=== PATIENT | female | born 1935 | race Caucasian/White ===

== ENCOUNTER → 2018-07-11 12:31 | Outpatient (CLI) | payer MEDICARE, OTHER, SELFPAY ==
[2018-07-11 12:54] LABS: Add Manual Diff / Slide Review NO; Basophils Absolute Auto 0 /uL (0-100); Basophils Percent Auto 0.4 % (0-2); Eosinophils Absolute Auto 100 /uL (0-450); Hematocrit 40.1 % (36-46); Hemoglobin 13.3 g/dL (12.0-16.0); Lymphocytes Absolute Auto 1400 /uL (1100-4500); Lymphocytes Percent Auto 22.3 % (25-40); Mean Corpuscular HGB Conc 33.1 % (30-36); Mean Corpuscular Hemoglobin 27.5 PG (26-34); Mean Corpuscular Volume 83.1 fL (80-100); Monocytes Absolute Auto 400 /uL (0-900); Monocytes Percent Auto 5.6 % (3-14); Neutrophils Absolute Auto 4500 /uL (1500-7000); Neutrophils Percent Auto 70.7 % (50-75); Platelet Count 251 X10^3/uL (150-400); Red Blood Cell Count 4.83 X10^6/uL (4.0-5.2); Red Cell Distribution Width 13.9 % (11.6-14.8); White Blood Cell Count 6.3 X10^3/uL (4.5-11.0)
[2018-07-11 13:05] LABS: Alanine Aminotransferase 26 IU/L (9-52); Albumin 4.4 g/dL (3.5-5.0); Albumin Globulin Ratio 1.5 (1.0-2.8); Alkaline Phosphatase 51 U/L (38-126); Aspartate Aminotransferase 23 IU/L (14-36); BUN Creatinine Ratio 26.7 (6-22); Bilirubin Total 0.2 mg/dL (0.2-1.3); Blood Urea Nitrogen 16 mg/dL (7-17); Carbon Dioxide 29 mmol/L (22-32); Chloride 101 mmol/L (98-107); Estimated Glomerular Filt Rate > 60.0 mL/min (>60); Globulin 2.9 g/dL (1.7-4.1); Glucose 147 mg/dL (80-110); HEMOLYSIS < 15 (0-50); Lipase 67 U/L (23-300); Potassium 4.4 mmol/L (3.4-5.1); Sodium 139 mmol/L (137-145); Total Protein 7.3 g/dL (6.3-8.2)
== END ==
PROVIDERS: PCP Internal Medicine; Visit Provider Internal Medicine
DX: R10.11 Right upper quadrant pain (principal)
CPT/HCPCS: 36415; 80053; 83690; 85025

== ENCOUNTER → 2018-07-12 09:13 | Outpatient (CLI) | payer MEDICARE, OTHER, SELFPAY ==
--- NOTE | 2018-07-12 | DI.CT.S_ITS ---
PROCEDURE: CT ABDOMEN W CON INDICATIONS: Right upper quadrant pain TECHNIQUE: After the administration of oral and intravenous contrast, 5 mm thick sections acquired from the diaphragms to the iliac crests. 5 mm thick coronal and sagittal reformats were acquired. For radiation dose reduction, the following was used: automated exposure control, adjustment of mA and/or kV according to patient size. COMPARISON: None. FINDINGS: Image quality: Excellent. The patient experienced severe sneezing with sensation of throat itchiness and narrowing of her throat as well. No shortness of breath. The patient was evaluated by the radiologist and transferred immediately to the emergency room for further evaluation. Lung bases: Lung bases are clear. Heart size is normal. Solid organs: Liver is normal in size and enhancement. There is diffuse, relative hypoattenuation of the liver compared to the spleen and consistent with hepatic steatosis. The Gallbladder is surgically absent. Biliary system is non dilated. Pancreas enhances normally. Spleen is normal in size and enhancement. No adrenal nodules. Kidneys are normal in size, without hydronephrosis. Peritoneum and bowel: Only the abdominal portion of the colon and small bowel was imaged. There is suggestion of an internal hernia to the left side of the abdomen containing a loop of distended small bowel and fecalization which denotes delayed transit. Oral contrast is visualized proximal and distal to this segment of small bowel. No gastric distention. No evidence for acute inflammatory changes. No free fluid or air. Nodes and vessels: No retroperitoneal or mesenteric adenopathy by size criteria. Aorta and inferior vena cava are normal in size. Bones: No suspicious bony lesions. No vertebral body compression fractures. Miscellaneous: No ventral hernias. IMPRESSION: 1. Long segment of dilated small bowel in the left abdomen with suggestion of possible internal hernia. The small bowel and colon are incompletely evaluated on this examination as only the abdomen was imaged. Oral contrast is noted proximal and distal to this segment of small bowel. Recommend further evaluation with CT of both the abdomen and pelvis with administration of oral contrast only given patient's adverse reaction to iodinated intravenous contrast. 2. Findings consistent with hepatic steatosis. Dictated by: Messi Barcenas M.D. on 07/12/2018 at 11:29 Approved by: Messi Barcenas M.D. on 07/12/2018 at 11:51
== END ==
PROVIDERS: PCP Internal Medicine; Visit Provider Internal Medicine
DX: R10.11 Right upper quadrant pain (principal)
CPT/HCPCS: 74160; Q9967

== ENCOUNTER 2018-07-12 10:25 | Emergency (ER) | payer MEDICARE, OTHER, SELFPAY ==
--- NOTE | 2018-07-12 10:31 | ED_ITS ---
HPI - Allergic Reaction General Chief complaint: Allergic Reaction Stated complaint: Allergic reaction to medication Time Seen by Provider: 07/12/18 10:27 Source: patient Mode of arrival: wheelchair Limitations: no limitations History of Present Illness HPI narrative: 82-year-old female. Insulin-dependent diabetic was brought over from the radiology department after she received oral and IV contrast for a CT scan of her abdomen. Appears that shortly after she received the IV contrast patient started having complaints of her throat swelling. Nursing also states the patient was having redness of her upper chest and upper back which seems to improve somewhat. Patient is not describing any problems breathing but does describe a fullness in her throat. She states she does not know of any allergy to contrast dye but states that she does not remember she has ever had before. Related Data Home Medications Medication Instructions Recorded Confirmed Citracal 600 mg PO DAILY 07/12/18 07/12/18 Cranberry Fruit 300 mg PO DAILY 07/12/18 07/12/18 acetaminophen [Tylenol Extra 500 mg PO Q6H PRN 07/12/18 07/12/18 Strength] aspirin 81 mg PO DAILY 07/12/18 07/12/18 cholecalciferol (vitamin D3) 2,000 unit PO DAILY 07/12/18 07/12/18 [Vitamin D3] cinnamon bark [Cinnamon] 1,000 mg PO BID 07/12/18 07/12/18 duloxetine 30 mg PO DAILY 07/12/18 07/12/18 glucagon (human recombinant) 1 dose IM PRN PRN 07/12/18 07/12/18 [Glucagon Emergency Kit (human)] insulin aspart U-100 [Novolog 5 units SUBCUT TID 07/12/18 07/12/18 Flexpen U-100 Insulin] insulin detemir U-100 [Levemir 25 unit SUBCUT QAM 07/12/18 07/12/18 FlexTouch U-100 Insuln] losartan 25 mg PO DAILY 07/12/18 07/12/18 lutein 20 mg PO DAILY 07/12/18 07/12/18 metformin 1,000 mg PO BID 07/12/18 07/12/18 rosuvastatin 20 mg PO DAILY 07/12/18 07/12/18 Previous Rx's Medication Instructions Recorded epinephrine [EpiPen 2-Mir] 0.3 mg IM Q15M PRN 1 Days #1 each 07/12/18 Allergies Allergy/AdvReac Type Severity Reaction Status Date / Time acetaminophen [From Vicodin] Allergy Severe ESOPHAGEAL Verified 07/12/18 11:38 SPASM codeine Allergy Severe ESOPHAGEAL Verified 07/12/18 11:38 SPASM hydrocodone [From Vicodin] Allergy Severe ESOPHAGEAL Verified 07/12/18 11:38 SPASM ibuprofen Allergy Severe ESOPHAGEAL Verified 07/12/18 11:38 SPASM Iodinated Contrast- Oral and Allergy Severe Anaphylaxis Verified 07/12/18 10:41 IV Dye Sulfa (Sulfonamide Allergy Severe Rash Verified 07/12/18 11:38 Antibiotics) hydromorphone [From Dilaudid] Allergy Unknown Verified 07/12/18 11:38 lisinopril AdvReac Severe Cough Verified 07/12/18 11:38 NSAID Allergy Unknown Uncoded 06/16/17 11:56 Review of Systems Constitutional Denies fever(s) ENT Ears, Nose, Mouth, and Throat: Reports sore throat, Reports throat swelling and Denies tongue swelling Cardiovascular Denies chest pain and Denies dyspnea Respiratory Denies dyspnea Musculoskeletal Denies myalgias and Denies arthralgias Integumentary/Breasts Comments: Redness to upper chest and upper back Hematologic/Lymphatic Denies easy bleeding and Denies easy bruising Allergic/Immunologic Reports throat swelling and Denies tongue swelling COUNTS INCLUDE 234 BEDS AT THE [facility] Medical History Diabetes (Acute) Social History (Updated 07/12/18 @ 10:30 by Kyrie Valverde DO) lives independently: Yes Social History (Updated 07/12/18 @ 10:30 by Kyrie Valverde DO) lives independently: Yes Exam Initial Vital Signs Initial Vital Signs: Vital Signs Temperature 97.3 F L 07/12/18 10:38 Pulse Rate 68 07/12/18 10:38 Respiratory Rate 14 07/12/18 10:38 Blood Pressure 139/49 L 07/12/18 10:38 Pulse Oximetry 100 07/12/18 10:38 Const General: cooperative, well developed and well groomed Orientation: alert, awake and oriented x3 HENMT Head: normal to inspection and normocephalic Nose: external nose normal Mouth: oral mucosae normal Teeth and gingiva: gingiva normal Throat: posterior oropharynx normal, uvula midline and no uvular edema Resp Effort & Inspection: normal respiratory effort Auscultation: clear to auscultation bilaterally Cardio Rate: regular rate Rhythm: regular rhythm Skin Other: Some redness to the upper chest and upper back however no urticaria. Neuro General: alert, awake and oriented x3 Cognition: normal cognition Speech: other (Muffled voice) Extrem General: normal to inspection and capillary refill normal Psych Appearance: grossly normal and well kempt Course Orders Ordered: Discontinued Medications Diphenhydramine HCl (Benadryl) 25 mg IV NOW ONE Stop: 07/12/18 10:28 Last Admin: 07/12/18 10:50 Dose: 25 mg Epinephrine HCl (Epipen) 0.3 mg IM NOW ONE Stop: 07/12/18 10:28 Last Admin: 07/12/18 11:05 Dose: Not Given Epinephrine HCl (Adrenalin) 0.3 mg SUBCUT NOW ONE Stop: 07/12/18 10:58 Last Admin: 07/12/18 11:03 Dose: 0.3 mg Famotidine (Pepcid) 20 mg in 50 mls @ 200 mls/hr IV NOW ONE Stop: 07/12/18 10:41 Last Infusion: 07/12/18 11:21 Dose: 0 mls/hr Admin: 07/12/18 10:50 Dose: 200 mls/hr Sodium Chloride (Normal Saline 0.9%) 1,000 mls @ 125 mls/hr IV CONT NADYA Last Infusion: 07/12/18 13:24 Dose: 0 mls/hr Admin: 07/12/18 10:51 Dose: 125 mls/hr Methylprednisolone (Solu-Medrol 125 Mg Vial) 125 mg IV NOW ONE Stop: 07/12/18 10:28 Last Admin: 07/12/18 10:50 Dose: 125 mg Vital Signs - 8 hr 07/12/18 12:24 07/12/18 13:00 Pulse Rate 89 90 Respiratory Rate 14 19 Blood Pressure [Right Arm] 137/56 L 135/55 L Pulse Oximetry 100 93 MDM - Allergic Reaction Lab Data Point of Care Testing Glucose POC 140 MDM Narrative Medical decision making narrative: Patient was given epinephrine secondary to her muffled voice. She was observed here in the emergency department for greater than 2 hours and was tolerating oral intake. She reports a complete resolution of all of her symptoms. No shortness of breath. did inform her that she should consider herself allergic to IV contrast dye given her presentation today. She was asking to go home. We did discuss strict return precautions with regard to the potential for rebound anaphylaxis. Patient expressed understanding. She still asking to go home. She will follow up with her primary doctor for the results of the CT scan that she obtain today. Discharge Plan Departure Patient Disposition: Home Clinical Impression: Anaphylaxis Qualifiers: Encounter type: initial encounter Qualified Code(s): T78.2XXA - Anaphylactic shock, unspecified, initial encounter Allergic reaction Qualifiers: Encounter type: initial encounter Qualified Code(s): T78.40XA - Allergy, un specified, initial encounter Discharge Date/Time: 07/12/18 13:41 Interventions: ED Discharge Assessment Last Done: 07/12/18 13:40 Instructions: DI for Anaphylaxis Activity Restrictions/Additional Instructions: I would recommend that you consider yourself allergic to IV contrast dye. Contact your primary care doctor for follow-up. Return to the emergency department for any new or worsening symptoms Prescriptions: New epinephrine [EpiPen 2-Mir] 0.3 mg/0.3 mL auto-injector 0.3 mg IM Q15M PRN (Reason: anaphylaxis) 1 Days Qty: 1 RF: 0 No Action duloxetine 30 mg capsule,delayed release(DR/EC) 30 mg PO DAILY RF: 0 Levemir FlexTouch U-100 Insuln 100 unit/mL (3 mL) insulin pen 25 unit subcut QAM RF: 0 metformin 500 mg tablet 1,000 mg PO BID RF: 0 losartan 25 mg tablet 25 mg PO DAILY RF: 0 Novolog Flexpen U-100 Insulin 100 unit/mL insulin pen 5 units subcut TID RF: 0 rosuvastatin 20 mg tablet 20 mg PO DAILY RF: 0 aspirin 81 mg Tablet,Delayed Release (Dr/Ec) 81 mg PO DAILY RF: 0 acetaminophen [Tylenol Extra Strength] 500 mg Tablet 500 mg PO Q6H PRN (Reason: pain) RF: 0 Glucagon Emergency Kit (human) 1 mg Recon Soln 1 dose IM PRN PRN (Reason: Hypoglycemia) RF: 0 cinnamon bark [Cinnamon] 500 mg Capsule 1,000 mg PO BID RF: 0 lutein 20 mg Capsule 20 mg PO DAILY RF: 0 cholecalciferol (vitamin D3) [Vitamin D3] 2,000 unit Tablet 2,000 unit PO DAILY RF: 0 Citracal 600 MG tablet 600 mg PO DAILY RF: 0 Cranberry Fruit 300 mg capsule 300 mg PO DAILY RF: 0 Referrals: Hayden Mendoza MD [Primary Care Provider] -
[2018-07-12 10:38] VITALS: BP 139/49; PULSE 68; RESP 14; TEMP 36.3; O2SAT 100
[2018-07-12] MEDS: methylPREDNISolone 125 MG/2 ML VIAL IV (10:50)
[2018-07-12] MEDS: diphenhydrAMINE 50 MG/ML VIAL 25 MG IV (10:50)
[2018-07-12] MEDS: FAMOTIDINE 20 MG/50 ML PIGGYBACK 200 MG IV (10:50)
[2018-07-12] MEDS: SODIUM CHLORIDE 0.9% 1,000 ML 125 ML IV (10:51)
[2018-07-12] MEDS: EPINEPHrine 1 MG/ML AMPUL 0.3 MG SUBCUT (11:03)
--- NOTE | 2018-07-12 11:24 | PC.NURSE ---
Pt has easy work of breathing, speaking in full sentences, no hoarseness noted to voice. States she is feeling improved after medications given in ED. Only symptom remaining is pain with swallowing.
[2018-07-12 12:24] VITALS: BP 137/56; PULSE 89; RESP 14; O2SAT 100
[2018-07-12 13:00] VITALS: BP 135/55; PULSE 90; RESP 18; RESP 19; O2SAT 93; O2SAT 95
== END 2018-07-12 13:41 | disposition home or self-care (01) ==
PROVIDERS: Emergency Provider Emergency Medicine; PCP Internal Medicine
DX: T78.2XXA Anaphylactic shock, unspecified, initial encounter (principal); T78.40XA Allergy, unspecified, initial encounter
CPT/HCPCS: 74160; 82962; 96361; 96365; 96372; 96375; 99283; 99284; J0171; J1200; J2930; Q9967

== ENCOUNTER → 2019-12-06 19:35 | Outpatient (ROUT) | payer MEDICARE, OTHER, SELFPAY ==
[2019-12-06 19:55] LABS: Aspartate Aminotransferase 23 IU/L (14-36); BUN Creatinine Ratio 29.7 (6-22); Blood Urea Nitrogen 19 mg/dL (7-17); Calcium 9.8 mg/dL (8.4-10.2); Carbon Dioxide 31 mmol/L (22-32); Chloride 102 mmol/L (98-107); Cholesterol 119 mg/dL (140-199); Estimated Glomerular Filt Rate > 60.0 mL/min (>60); Glucose 147 mg/dL (80-110); HDL Cholesterol 47 mg/dL (40-60); HEMOLYSIS < 15 (0-50); LDL Cholesterol Calculated 26 mg/dL (<100); Potassium 4.3 mmol/L (3.4-5.1); Sodium 138 mmol/L (137-145); Triglycerides 228 mg/dL (35-150)
[2019-12-06 20:24] LABS: TSH w/ Reflex to FT4 1.69 uIU/mL (0.47-4.68)
== END ==
PROVIDERS: PCP Internal Medicine; Visit Provider Internal Medicine
DX: E11.9 Type 2 diabetes mellitus without complications (principal); E78.2 Mixed hyperlipidemia
CPT/HCPCS: 80048; 80061; 84443; 84450

== ENCOUNTER → 2020-01-05 11:06 | Outpatient (CLI) | payer MEDICARE, OTHER, SELFPAY ==
--- NOTE | 2020-01-05 | DI.MG.S_ITS ---
BILATERAL DIGITAL SCREENING MAMMOGRAM 3D/2D WITH CAD: 01/05/2020 CLINICAL: Routine screening. Comparison is made to exams dated: 09/23/2018 mammogram, 08/17/2017 mammogram, and 08/14/2016 mammogram - [facility]. The tissue of both breasts is heterogeneously dense. This may lower the sensitivity of mammography. Current study was also evaluated with a Computer Aided Detection (CAD) system. No significant masses, calcifications, or other findings are seen in either breast. There has been no significant interval change. IMPRESSION: NEGATIVE There is no mammographic evidence of malignancy. A 1 year screening mammogram is recommended. This exam was interpreted at Station ID: [id number]. NOTE: For mammograms, a report in lay terms will be sent to the patient. Approximately 15% of breast malignancies will not be visualized mammographically. In the management of a palpable breast mass, a negative mammogram must not discourage biopsy of a clinically suspicious lesion. Electronically Signed By: Dante polo/dai:01/05/2020 17:01:41 letter sent: Normal Exam ACR BI-RADS Category 1: Negative [id number]
== END ==
PROVIDERS: PCP Internal Medicine; Referring Provider Internal Medicine; Visit Provider Internal Medicine
DX: Z12.31 Encounter for screening mammogram for malignant neoplasm of breast (principal)
CPT/HCPCS: 77063; 77067

== ENCOUNTER → 2020-07-16 11:12 | Outpatient (CLI) | payer MEDICARE, OTHER, SELFPAY ==
--- NOTE | 2020-07-16 | DI.MRI.S_ITS ---
PROCEDURE: MR ANKLE LT WO CON INDICATIONS: left ankle pain TECHNIQUE: Noncontrast sagittal T1 spin echo and T2 fast spin echo with fat saturation, axial proton density fast spin echo and T2 fast spin echo with fat saturation, coronal T1 spin echo and T2 fast spin echo with fat saturation through the ankle/hindfoot. COMPARISON: None. FINDINGS: Image quality: Excellent. Bones and joints: No fracture or dislocation. Mild osteoarthritic changes are noted in ankle and hindfoot joints more prominent involving talonavicular joint with dorsal marginal osteophyte formation. No hindfoot coalitions. Subtle edema involving anterior and medial aspect of talar dome weight-bearing portion is seen concerning for early tiny osteochondral injury in this area. No other area of abnormal marrow signal is seen. Moderate amount of tibiotalar joint effusion is seen. Moderate amount of subtalar joint effusion is also noted. No gross intra-articular loose body. Medial structures: The posterior tibialis, flexor digitorum longus, and flexor hallucis longus tendons are intact. Small amount of fluid distending flexor tendon sheath is seen suggestive of low-grade tenosynovitis. The posterior tibial neurovascular bundle appears normal within the tarsal tunnel, without extrinsic mass effect. The deep layer (anterior and posterior tibiotalar ligaments) and superficial layer (tibionavicular, tibiospring, and tibiocalcaneal ligaments) of the deltoid ligament appear normal. The spring ligament components (superomedial calcaneonavicular, medioplantar oblique calcaneonavicular, and inferoplantar longitudinal ligaments) are intact. Lateral structures: The anterior talofibular, calcaneofibular, and posterior talofibular ligaments appear thickened with intrasubstance T2 hyperintense signal. More superiorly, the anterior and posterior tibiofibular ligaments appear intact, as is the intermalleolar ligament. The tibiofibular syndesmosis is normal in width at 2 mm or less. The peroneus longus and brevis tendons are thickened at the level of inferior calcaneus with small amount of fluid distending tendon sheath. Adjacent bony peroneal tubercle and retrotrochlear prominence are normal in size. The sinus tarsi demonstrates normal fatty signal, without edema, fibrosis, or cyst formation. Visualized sinus tarsi components (cervical ligament, interosseous talocalcaneal ligament, roots of the inferior extensor retinaculum) appear normal. The calcaneonavicular and calcaneocuboid components of the bifurcate ligament appear intact. The dorsal calcaneocuboid ligament appears intact. Anterior structures: The tibialis anterior, extensor hallucis longus, and extensor digitorum longus tendons appear intact. The dorsal talonavicular ligament appears intact. Posterior and plantar structures: Achilles tendon is intact. Medial and lateral bands of the plantar fascia are of normal thickness. No abductor digiti quinti muscle atrophy to suggest Purcell neuropathy. IMPRESSION: 1. Low to moderate grade sprain/partial-thickness tear involving anterior and posterior talofibular ligaments and calcaneofibular ligament. 2. Tendinosis and low-grade tenosynovitis involving peroneus tendons at the level of inferior calcaneus. Low-grade tenosynovitis involving flexor tendons at the level of anterior talus. 3. Mild ankle and hindfoot joint osteoarthritis. No fracture or dislocation. Suggestion of tiny osteochondral injury involving anterior medial aspect of talar dome weight-bearing portion. Moderate amount of joint fluid, no gross loose body. Dictated by: Alejandro Bob M.D. on 07/16/2020 at 14:56 Approved by: Alejandro Bob M.D. on 07/16/2020 at 15:08
== END ==
PROVIDERS: PCP Internal Medicine; Referring Provider Orthopaedic Surgery Foot and Ankle Surgery; Visit Provider Orthopaedic Surgery Foot and Ankle Surgery
DX: M79.672 Pain in left foot (principal); S93.412A Sprain of calcaneofibular ligament of left ankle, initial encounter; S93.492A Sprain of other ligament of left ankle, initial encounter; M65.872 Other synovitis and tenosynovitis, left ankle and foot; M19.072 Primary osteoarthritis, left ankle and foot
CPT/HCPCS: 73721

== ENCOUNTER → 2020-09-24 10:19 | Outpatient (CLI) | payer MEDICARE, OTHER, SELFPAY ==
--- NOTE | 2020-09-24 10:44 | DI.RAD.S_ITS ---
PROCEDURE: XR CERVICAL SPINE 2V OR 3V INDICATIONS: NECK PAIN TECHNIQUE: 3 view(s) of the cervical spine were acquired. COMPARISON: None. FINDINGS: Bones: No fractures or dislocations to the T1 level. The lateral masses of C1 appear intact on the odontoid view. No suspicious bony lesions. There is moderately severe degenerative disc disease at C6-7 and moderate such degeneration at the 2 levels immediately above. Slight anterolisthesis is present at C3 on C4, minimal grade 1. Soft tissues: No prevertebral soft tissue swelling. IMPRESSION: No trauma found. C6-7 degenerative disc disease is moderately severe but the degenerative changes more superiorly are moderate in severity. No definite spinal and foraminal stenosis. Dictated by: Akash Estrada M.D. on 09/24/2020 at 12:38 Approved by: Akash Estrada M.D. on 09/24/2020 at 12:39
== END ==
PROVIDERS: PCP Internal Medicine; Referring Provider Physician Assistant; Visit Provider Physician Assistant
DX: M50.323 Other cervical disc degeneration at C6-C7 level (principal); G44.209 Tension-type headache, unspecified, not intractable
CPT/HCPCS: 72040

== ENCOUNTER → 2020-09-25 10:23 | Outpatient (CLI) | payer MEDICARE, OTHER, SELFPAY ==
--- NOTE | 2020-09-25 | DI.CT.S_ITS ---
PROCEDURE: CT HEAD/BRAIN WO CON INDICATIONS: Tension-type headache, unspecified TECHNIQUE: Noncontrast 4.5 mm thick angled axial sections acquired from the foramen magnum to the vertex, with coronal and sagittal reformats. For radiation dose reduction, the following was used: automated exposure control, adjustment of mA and/or kV according to patient size. COMPARISON: [facility], MR, BRAIN W/O CONTRAST, 07/10/2009, 10:44. FINDINGS: Image quality: Excellent. CSF spaces: Basal cisterns are patent. No extra-axial fluid collections. The ventricles are symmetric in size and shape. Brain: No intracranial bleeds or masses. There is cerebral volume loss for age, with resultant ventricular and sulcal prominence. There are periventricular and deep white matter chronic small vessel ischemic changes. There is intracranial internal carotid artery atherosclerosis. Skull and face: Calvarium and visualized facial bones appear intact, without suspicious lesions. Sinuses: Visualized sinuses and mastoids are clear. IMPRESSION: Unremarkable intracranial study, without an imaging explanation found for the patient's presenting history of headache. Dictated by: Fahad Bergman M.D. on 09/25/2020 at 9:55 Approved by: Fahad Bergman M.D. on 09/25/2020 at 9:56
== END ==
PROVIDERS: PCP Internal Medicine; Referring Provider Physician Assistant; Visit Provider Physician Assistant
DX: G44.209 Tension-type headache, unspecified, not intractable (principal); M54.2 Cervicalgia
CPT/HCPCS: 70450

== ENCOUNTER → 2021-04-09 14:10 | Outpatient (CLI) | payer MEDICARE, OTHER, SELFPAY ==
--- NOTE | 2021-04-09 14:16 | DI.MRI.S_ITS ---
PROCEDURE: MR LUMBAR SPINE WO CON INDICATIONS: Radiculopathy, lumbar region TECHNIQUE: Noncontrast sagittal T1 spin echo and T2 fast echo, sagittal STIR, axial T1 and T2 fast spin echo through the lumbar spine. In cases with scoliosis, additional coronal T2 fast spin echo may be performed. COMPARISON: [facility], CR, XR LUMBAR SPINE WITH OBLIQUES PLUS FLEXION EXTENSION, 03/20/2021, 11:10. FINDINGS: Image quality: Excellent. Alignment and Curvature: Degenerative grade 1 retrolisthesis noted at L4-5 and anterior listhesis L5-S1. Bone Marrow: There is an anterior compression fracture of the L2 vertebral body with less than 5% height loss predominantly involving the superior endplate anteriorly. Incidental typical hemangioma noted in the L2 vertebral body as well. No retropulsed fracture fragment. Old compression fracture noted at T12 with 5% height loss. Spinal Cord: Conus medullaris terminates at the L1 level. Visualized cord demonstrates normal signal and size. Paraspinous Soft Tissues: No paravertebral masses. T12-L1: Mild height loss and circumferential disc bulge without central or foraminal stenosis. L1-L2: Moderate height loss and circumferential disc bulge without central or foraminal stenosis. L2-L3: Moderate disc height loss and circumferential disc bulge results in mild central stenosis. No foraminal stenosis. L3-L4: Mild disc height loss and circumferential disc bulge without central or foraminal stenosis L4-L5: Moderate disc height loss and circumferential disc bulge combines with hypertrophic facet joints and epidural fat result in moderate central stenosis. Is moderate right and no left foraminal stenosis. L5-S1: Moderate disc space narrowing and circumferential disc bulge with hypertrophic facet joints results in mild central stenosis. There is moderate right and no left foraminal stenosis. Incidental partial sacralization of L5 on the left IMPRESSION: 1. Acute to subacute L2 compression fracture with anterior less than 5% height loss and without retropulsed fracture fragment. 2. Multilevel degenerative disc disease and arthropathy results in varying degrees of central and foraminal stenosis including moderate central stenosis at L4-5 Approved by: Jay Catalan M.D. on 04/09/2021 at 17:34
== END ==
PROVIDERS: PCP Internal Medicine; Referring Provider Physical Medicine & Rehabilitation; Visit Provider Physician Assistant
DX: M48.56XA Collapsed vertebra, not elsewhere classified, lumbar region, initial encounter for fracture (principal); M51.16 Intervertebral disc disorders with radiculopathy, lumbar region; M48.061 Spinal stenosis, lumbar region without neurogenic claudication; M47.26 Other spondylosis with radiculopathy, lumbar region
CPT/HCPCS: 72148

== ENCOUNTER → 2021-05-02 13:28 | Outpatient (CLI) | payer MEDICARE, OTHER, SELFPAY | PROVIDERS: PCP Internal Medicine; Referring Provider Orthopaedic Surgery; Visit Provider Orthopaedic Surgery | DX: M25.531 Pain in right wrist (principal); Z53.20 Procedure and treatment not carried out because of patient's decision for unspecified reasons ==

== ENCOUNTER → 2021-05-16 10:56 | Outpatient (CLI) | payer MEDICARE, OTHER, SELFPAY ==
--- NOTE | 2021-05-16 | DI.MRI.S_ITS ---
PROCEDURE: MR WRIST RT WO CON INDICATIONS: RIGHT WRIST PAIN TECHNIQUE: Noncontrast coronal proton density fast spin echo and T2 fast spin echo with fat saturation; coronal 3-D gradient echo, axial T1 spin echo and T2 fast spin echo with fat saturation, sagittal T1 spin echo through the wrist. COMPARISON: None. FINDINGS: Image quality: Images are degraded by motion artifact. Bones and cartilage: The carpal bones are normally aligned. No bone marrow contusions or fractures. Round T2 hyperintense/T1 hypointense foci seen within the ulnar styloid, capitate, hamate, and proximal scaphoid pole, measuring up to 7.3 mm, likely reflecting fibrocystic change or erosions. Joint space loss with osteophytosis about the 1st carpometacarpal articulation. Signal heterogeneity and thinning of the hyaline cartilage. Carpal ligaments: Widening of the scapholunate interval. The lunotriquetral ligament appears intact. In the absence of intra-articular contrast, the extrinsic carpal ligaments are not well identified. On sagittal images, the pisohamate ligament appears intact. Triangular fibrocartilage complex: The TFCC is not well delineated due to motion artifact but appears grossly intact. The extensor carpi ulnaris tendon is normal in location and morphology. Tendons and soft tissues: The carpal tunnel structures appear normal, including the median nerve. Small radiocarpal joint effusion with evidence of synovitis The ulnar nerve appears normal within Guyon's canal. All six extensor tendon compartments demonstrate normal morphology, without pathologic tendon sheath fluid. IMPRESSION: 1. Fibrocystic changes of the the wrist versus erosive change. Consider correlation with RA factor. 2. 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 3. Small radiocarpal joint effusion with evidence of synovitis. 4. Widening of the scapholunate interval. Dictated by: Deyvi Leblanc M.D. on 05/16/2021 at 12:04 Approved by: Deyvi Leblanc M.D. on 05/16/2021 at 12:19
== END ==
PROVIDERS: PCP Internal Medicine; Referring Provider Orthopaedic Surgery; Visit Provider Orthopaedic Surgery
DX: M25.531 Pain in right wrist (principal)
CPT/HCPCS: 73221

== ENCOUNTER → 2021-06-21 09:51 | Outpatient (CLI) | payer MEDICARE, OTHER, SELFPAY ==
--- NOTE | 2021-06-21 | DI.MRI.S_ITS ---
PROCEDURE: MR LUMBAR SPINE WO CON INDICATIONS: Radiculopathy, lumbar region TECHNIQUE: Noncontrast sagittal T1 spin echo and T2 fast echo, sagittal STIR, and T2 fast spin echo through the lumbar spine. In cases with scoliosis, additional coronal T2 fast spin echo may be performed. COMPARISON: [facility], MR, MR LUMBAR SPINE WO CON, 04/09/2021, 14:35. FINDINGS: Image quality: Excellent. Alignment and Curvature: Degenerative grade 1 retrolisthesis noted at L4-5 and grade 1 anterior listhesis at L5-S1 Bone Marrow: Edema in the L2 vertebral body has resolved. Compression fracture with minimal height loss predominantly involving the superior endplate has resolved. There is a L2 typical hemangioma again noted unchanged. Spinal Cord: Conus medullaris terminates at the L1 level. Visualized cord demonstrates normal signal and size. Paraspinous Soft Tissues: No paravertebral masses. T12-L1: Mild disc height loss and circumferential disc bulge without central or foraminal stenosis L1-L2: Disc height loss and circumferential disc bulge without central or foraminal stenosis L2-L3: Moderate disc height loss and circumferential disc bulge results in mild central stenosis. No foraminal stenosis. L3-L4: Disc height loss and circumferential disc bulge noted without central or foraminal stenosis L4-L5: Moderate disc height loss and circumferential disc bulge combines with hypertrophic facet joints and epidural fat to result in moderate central stenosis. Moderate right and no left foraminal stenosis. L5-S1: Disc space narrowing and circumferential disc bulge with hypertrophic facet joints results in mild central stenosis. Moderate right and no left foraminal stenosis. IMPRESSION: 1. Multilevel degenerative disc disease, arthropathy and epidural fat results varying degrees of central and foraminal stenosis including moderate central stenosis at L4-5. No change from the prior exam 2. Healing L2 compression fracture. No retropulsed fracture fragment Approved by: Jay Catalan M.D. on 06/21/2021 at 23:49
== END ==
PROVIDERS: PCP Internal Medicine; Referring Provider Physical Medicine & Rehabilitation; Visit Provider Physical Medicine & Rehabilitation
DX: M51.16 Intervertebral disc disorders with radiculopathy, lumbar region (principal); M51.17 Intervertebral disc disorders with radiculopathy, lumbosacral region; M47.26 Other spondylosis with radiculopathy, lumbar region; M47.27 Other spondylosis with radiculopathy, lumbosacral region; M48.061 Spinal stenosis, lumbar region without neurogenic claudication; M48.07 Spinal stenosis, lumbosacral region; M48.56XD Collapsed vertebra, not elsewhere classified, lumbar region, subsequent encounter for fracture with routine healing
CPT/HCPCS: 72148

== ENCOUNTER → 2021-08-22 10:16 | Outpatient (CLI) | payer MEDICARE, OTHER, SELFPAY ==
--- NOTE | 2021-08-22 | DI.CT.S_ITS ---
PROCEDURE: CT LUMBAR SPINE WO CON INDICATIONS: spinal stenosis lumbar region TECHNIQUE: Noncontrast 3 mm thick sections acquired from the T12 level to the sacrum. Sagittal and coronal reformats were constructed. For radiation dose reduction, the following was used: automated exposure control. COMPARISON: [facility], MR, MR LUMBAR SPINE WO CON, 06/21/2021, 10:07. FINDINGS: Image quality: Portions of the lower pelvis are suboptimally evaluated secondary to metallic streak artifact from hip arthroplasty. Bones: There is 8 mm grade 1 anterolisthesis of L5 on S1, 5 mm grade 1 retrolisthesis of L4 on L5. Bilateral pars defect is present at L5. There is mild wedge deformity of the superior endplate of L2. Bridging anterior osteophytes are present at multiple levels most notable from L2 through L4. No visualized acute fractures or dislocations. Mild disc bulges are present at T12-L1, L1-L2, L2-3, L3-4, L4-5 as well as L5-S1. Mild spinal stenosis is present L2-3, moderate L4-5, mild L5-S1. There is moderate right foraminal narrowing at L4-5 as well as L5-S1. Multilevel facet and ligamentum flavum hypertrophy as well as epidural lipomatosis are present. Overall appearance has not appreciably changed compared to 06/21/2021. Soft tissues: No retroperitoneal masses or hematomas. Visualized aorta is normal in caliber. IMPRESSION: Grade 1 anterolisthesis of L5 on S1 with pars defect. Multilevel disc bulges, unchanged. Multilevel pmev-nm-phicohee spinal stenosis, unchanged dominantly secondary to disc bulge with contributing effect of facet/ligamentum flavum arthropathy. Multilevel foraminal narrowing most notable at L4-5 and L5-S1 secondary to facet arthropathy. Dictated by: Dasia Rodríguez M.D. on 08/22/2021 at 15:26 Approved by: Dasia Rodríguez M.D. on 08/22/2021 at 15:36
== END ==
PROVIDERS: PCP Internal Medicine; Referring Provider Orthopaedic Surgery Orthopaedic Surgery of the Spine; Visit Provider Orthopaedic Surgery Orthopaedic Surgery of the Spine
DX: M48.061 Spinal stenosis, lumbar region without neurogenic claudication (principal); M48.07 Spinal stenosis, lumbosacral region; M43.16 Spondylolisthesis, lumbar region; M51.26 Other intervertebral disc displacement, lumbar region; M51.27 Other intervertebral disc displacement, lumbosacral region; M47.816 Spondylosis without myelopathy or radiculopathy, lumbar region; M47.817 Spondylosis without myelopathy or radiculopathy, lumbosacral region
CPT/HCPCS: 72131

== ENCOUNTER → 2021-08-29 09:51 | Outpatient (CLI) | payer MEDICARE, OTHER, SELFPAY ==
[2021-08-29 11:47] LABS: COVID-19 CEPHEID PCR (VTM/NP) Negative (Negative)
== END ==
PROVIDERS: PCP Internal Medicine; Referring Provider Orthopaedic Surgery Orthopaedic Surgery of the Spine; Visit Provider Orthopaedic Surgery Orthopaedic Surgery of the Spine
DX: Z20.822 Contact with and (suspected) exposure to COVID-19 (principal)
CPT/HCPCS: U0003; U0005

== ENCOUNTER 2021-09-01 11:06 | Inpatient (IN) | payer MEDICARE, OTHER, SELFPAY ==
[2021-08-25 09:49] VITALS: BMI 26.6
[2021-09-01] VITALS (16 sets, daily range): BP systolic 116–148; BP diastolic 42–85; PULSE 77–95; RESP 16–18; TEMP 36–36.9; O2SAT 92–100; BMI 26.6
--- NOTE | 2021-09-01 11:31 | PM.PREOP ---
Pre-operative Note COVID-19 COVID-19 status: Negative Result date/Date tested (Pos, Neg/Pending): 08/31/21 Criteria for continued procedure: Expected advancement of disease process, Possibility delay results in more complex future surgery or treatment, Increased loss of function, Continuing or worsening of significant or severe pain, Deterioration of the patient's condition or overall health and Delay expected to result in less-positive ultimate med/surg outcome Interval Note History & Physical reviewed/Exam performed by Physician: Yes Changes to H&P: No
[2021-09-01] MEDS: LACTATED RINGERS 1,000 ML 42 ML IV ×2 (12:00→15:10)
[2021-09-01] MEDS: ACETAMINOPHEN IV 1,000 MG/100 ML VIAL 400 MG IV (12:10)
[2021-09-01] MEDS: CEFAZOLIN 2 GM/20 ML SYRINGE IV (12:57)
--- NOTE | 2021-09-01 13:09 | SUR.OPER ---
Prone on spine table, head in foam head support, padded chest and pelvic supports, gel pad at knees, lower legs supported by pillows; nipples, genitalia and toes free of pressure, arms secured on foam padded arm boards at <90 degrees abduction. Tape over blanket at thigh secured to table. Mann in place. 5 people assisted when positioning. Surgeon approved the position.
[2021-09-01] MEDS: BUPIVACAINE 0.5% (PF) 30 ML, EPINEPHrine 0.15 MG INJ (15:22)
[2021-09-01] MEDS: BUPIVACAINE LIPOSOME 266 MG/20 ML VIAL INJ (16:00)
--- NOTE | 2021-09-01 16:16 | DI.RAD.S_ITS ---
PROCEDURE: XR LUMBAR SPINE 2-3V INDICATIONS: L4-5, L5-S1 TLIF TECHNIQUE: 2 intraoperative fluoroscopic spot films are submitted COMPARISON: None. FINDINGS: And low resolution intraoperative fluoroscopic spot films show T4-5 and T5-S1 discectomy and fusion with posterior rosana and screw instrumentation in good position IMPRESSION: Fluoroscopic guidance Approved by: Jay aCtalan M.D. on 09/01/2021 at 16:24
--- NOTE | 2021-09-01 16:26 | P.OP_ITS ---
Operative Date/Time/Diagnoses Date of procedure: 09/01/21 Time of procedure: 12:45 Pre-op diagnosis: 1. L4-5 L5-S1 spondylolisthesis 2. L4-5, L5-S1 spinal stenosis with radiculopathy Post-op diagnosis: same Procedure & Clinicians Procedure: 1. L4-5, L5-S1 Postero-lateral and posterior interbody fusion 2. L4-5, L5-S1 interbody cage placement. 3. L4-5, L5-S1 decompressive laminectomy with bilateral facetecomies 4. L4-5, L5-S1 Posterior segmental instrumentation 5. Hazard of bone marrow from iliac crest 6. Utilization of microsurgical technique and operating microscope 7. Utilization of robotic assisted navigation Same procedure as scheduled: Yes Indications: Patient has been having chronic back pain and worsening lumbar radiculopathy. Patient failed multiple conservative management with worsening pain weakness and numbness in her lower extremity. Patient has been having difficulty performing activity of daily living. After discussing risks benefits of treatment options, patient elected proceed with surgery. Surgeon: Nina Gauthier Natural Resource Officer: Sheila Colin Click Yes if Unassisted: No Anesthesia Type: General Operative Notes Closure Type: primary Specimen(s): none sent Prosthetic devices, grafts, tissues, transplants, or devices: Globus CREO MIS screws, Rise cages Applied: catheter Estimated Blood Loss (mL): 100 Blood products transfused: none Procedure in detail: Patient was seen in the preoperative area. Risks and benefits of the surgery was discussed with the patient. Informed consent was obtained from the patient and placed in the chart. Surgical site was marked. Patient was taken to the operative room. General anesthesia was administered. Prophylactic antibiotic was given to the patient less than 30 min before the incision was made. Patient was placed into a prone position on the Sudeep table. Patient's back was then prepped and draped in the sterile fashion. Time-out was performed at this time. After patient was prepped and draped, patient's PSIS was palpated and marked bilaterally. Small 1 cm incision was made over the PSIS for placement of the reference probes. Two trocar was placed into the PSIS 1 on each side. The reference probe was attached to the trocar of the reference apparatus. At this time the C-arm imaging was used to confirm AP and lateral of L4-L5, L5- S1 vertebrae and merged the C-arm imaging using the [employer] robotic navigation system with the CT of the lumbar spine. After successful merging was completed and confirmed, skin marker was used to warren out the skin incision using the [employer] robotic arm. Bilateral incision was made at this time. Pre templated trajectory was used and guided using the [employer] robotic navigation system for bilateral L4, L5, S1 pedicle screw placement. This was done by using the robotic arm to guide the high-speed bur to make a cortical entry point. Next a drill was placed also using the robotic arm and guided using the navigation system drilling partially through bilateral L4, L5 and S1 pedicles. Next L4, L5, S1 pedicle screws it was pre templated and measured was placed onto the power drivers license examiner and inserted into the pedicles bilaterally. During the planning process was identified the left L5 pedicle had a significant deformity which made insertion of a screw difficult and potentially cause harm to the adjacent surrounding neural logic tissues. Decision was made to leave the left L5 pedicle without a pedicle screw during the planning process. After all 5 screws were placed C-arm imaging was taken of both AP and lateral to confirm the placement. Excellent placement of the screws were confirmed and a matched precisely with the pre planned screw placement using the navigation system. MARs retractor was inserted using [employer] guidence. Globus MARS retractors was placed inside the incision and docked onto the L4 and L5 lamina. Using microsurgical technique and operating microscope, a L4, L5 laminectomy and L4-5, L5-S1 facetectomy was performed using a Kerrison rongeur. Patient was found have severe lateral recess and neural foramen stenosis which was fully decompressed after the laminectomy facetectomy. More than 75% of the facets were removed during the process of decompression rendering L4-5, L5-S1 level grossly unstable and required a fusion procedure at the same time. The disc space at L4-5, L5-S1 was identified, and a total diskectomy was performed at L4- 5, L5-S1 level. The endplates were decorticated using a rasp and shaver. The total diskectomy and decortication was performed at L4-5, L5-S1 level in order to to accomplish a L4-5, L5-S1 fusion. The local bone from the laminectomy and facetectomy was saved for local bone grafting. After the total diskectomy and decortication was completed, Trifecta bone graft material was combined with local bone that was harvested earlier. At this time, a separate skin is incision was made over the iliac crest. A Jamshidi needle was inserted into the iliac crest through a separate skin incision. 5 cc of bone marrow aspiration was obtained through the separate skin incision using a Jamshidi needle from the iliac crest. The bone marrow aspiration was combined with local bone and the Trifecta bone grafting material. The bone grafting material was placed into the L4-5, L5-S1 interbody space along with a expandable cage. The cage was expanded to its maximum height using the torque limiting screwdriver. The disc preparation as well as the cage insertion were also performed under navigation guidance. After the cage was placed, AP and lateral C-arm imaging was taken to confirm placement of the cage and excellent position was confirmed. Globus MARS retractor was inserted and docked onto the L4-5, L5-S1 posterolateral gutter on the right side. Using the power drill, posterior-later al decortication was performed at L4-5, L5-S1 level until bleeding cortical bone was identified. The remaining bone grafting material was placed into the L4-5, L5-S1 posterior lateral gutter he order to accomplish posterolateral fusion at the L4-5, L5-S1 level. At this time the tulips were attached to the L4, L5, S1 pedicle screw shanks. After measuring the length of the rods, they were inserted into the tulips of the pedicle screws and locked in place using locking caps and torque limiting screwdriver bilaterally. Total 6 caps and 2 titanium rods was used in order to complete the posterior instrumentation construct. After all the hardware was placed, and confirmed with AP and lateral C-arm imaging, the wound was then irrigated with sterile normal saline and packed with Ray-Arlet gauze for 3 min to accomplish hemostasis. After the gauze was removed the deep fascia was closed with #1 Vicryl suture. The subcutaneous layer was closed with 2-0 Vicryl. The skin was closed with skin noelle. Patient tolerated the procedure well. There were no complications. Neuro monitoring system was used to monitor patient's neurologic status throughout entire procedure. There was no disturbance of the neural monitoring signals throughout the case. Complications: none Post-operative Condition: stable Disposition: PACU Plan for aftercare: Admit to inpatient hospital
[2021-09-01] MEDS: MORPHINE 10 MG/ML INJ IV ×2 (17:10→17:27)
[2021-09-01] MEDS: INSULIN LISPRO 100 UNIT/ML 3ML VIAL SUBCUT (17:11)
[2021-09-01] MEDS: hydrOXYzine pamoate 25 MG CAPSULE PO (17:19)
[2021-09-01] MEDS: OXYCODONE IR 5 MG TABLET PO (17:19)
[2021-09-01] MEDS: LORazepam 2 MG/ML INJ 0.25 MG IV (17:46)
[2021-09-01] MEDS: ONDANSETRON 4 MG/2 ML INJ IV (18:00)
--- NOTE | 2021-09-01 18:23 | SUR.PHASEI ---
1820: Pt appears much more comfortable, denies nausea, VSS and ready to transfer to room. Report given to receiving RN using SBAR with time allowed for questions. Pt transferred to room 208 with all personal belongings.
[2021-09-01] MEDS: SODIUM CHLORIDE 0.9% 1,000 ML 100 ML IV (18:56)
--- NOTE | 2021-09-01 19:10 | PC.NURSE ---
Patient brought up from PACU, oriented to room and call light. Her daughter is at bedside. Patient is restless and attempting to reposition in bed, stating my pain is a 40, but is groggy and closing her eyes to rest in between talking. Patient assisted to reposition with help, reviewed mobility restrictions. Dressing to her back is CDI. Mann is in place and intact draining clear yellow urine. Call light placed within reach, bed alarm activated for safety. Float RN to bedside at this time to assist with admission.
[2021-09-01] MEDS: OXYCODONE IR 5 MG TABLET 10 MG PO (19:22)
[2021-09-01] MEDS: INSULIN GLARGINE 100 UNIT/ML 3ML PEN 20 UNIT SUBCUT (21:47)
[2021-09-01] MEDS: ATORVASTATIN 20 MG TABLET 40 MG PO (21:48)
[2021-09-01] MEDS: DOCUSATE 100 MG CAPSULE PO (21:48)
[2021-09-01] MEDS: SENNOSIDES 8.6 MG TABLET 17.2 MG PO (21:49)
[2021-09-01] MEDS: MORPHINE 2 MG/ML INJ 1 MG IV (21:49)
[2021-09-01] MEDS: METFORMIN HCL 500 MG TABLET 1000 MG PO (21:49)
[2021-09-01] MEDS: CEFAZOLIN 1 GM VIAL IV (21:50)
[2021-09-02] VITALS (8 sets, daily range): BP systolic 106–119; BP diastolic 44–53; PULSE 88–115; RESP 12–17; TEMP 36.1–37.8; O2SAT 92–96
[2021-09-02] MEDS: OXYCODONE IR 5 MG TABLET 10 MG PO ×5 (02:11→19:12)
[2021-09-02] MEDS: SODIUM CHLORIDE 0.9% 1,000 ML 100 ML IV (03:14)
[2021-09-02] MEDS: hydrOXYzine pamoate 25 MG CAPSULE PO ×3 (03:16→17:31)
[2021-09-02] MEDS: CEFAZOLIN 1 GM VIAL IV (05:55)
[2021-09-02 06:26] LABS: Hematocrit 31.2 % (36-46); Hemoglobin 10.6 g/dL (12.0-16.0)
--- NOTE | 2021-09-02 07:05 | P.PN_ITS ---
Subjective Subjective Date Patient Seen: 09/02/21 Time Patient Seen: 07:06 Interval history: Patient's pain is moderate to severe. Denies fever or chills. No nausea vomiting. Patient has a Mann catheter. She has not yet been out of bed since surgery. Patient lives by herself and has no help at home. Exam Vital Signs (past 8 hours): - 09/02/21 01:30 09/02/21 05:00 Temperature 98.0 F 97.0 F L Pulse Rate 88 90 Respiratory Rate 17 17 Blood Pressure 115/49 L 106/50 L Pulse Oximetry 95 96 Oxygen Flow Rate 0 0 Oxygen Delivery Method Nasal Cannula Oxygen Flow Rate 0 Narrative Exam Narrative: 85-year-old female resting comfortably in bed in no apparent distress. Motor functions intact bilateral lower extremities. Sensation grossly intact to light touch bilateral lower extremities. Const General: cooperative and comfortable Objective Labs Result Diagrams: 09/02/21 05:52 Labs: Laboratory Results - last 24 hr 09/02/21 05:52 Hgb 10.6 L Hct 31.2 L PFSH Medical History BCC (basal cell carcinoma) Diabetes Fall from ground level (08/13/21) Hearing impaired HLD (hyperlipidemia) Spinal stenosis Surgical History History of 3 sections History of arthroplasty of right hip History of carpal tunnel surgery of left wrist History of carpal tunnel surgery of right wrist History of orthopedic surgery Hx of arthroscopy of right knee Hx of bilateral cataract extraction Hx of cholecystectomy Hx of toe surgery Social History household members: none lives independently: Yes Smoking Status: Never smoker alcohol intake: current Assessment & Plan Post-op Postoperative Procedures: Procedures Operation Date: 09/01/21 12:45 Actual Procedure Side Surgeon p L4-5, L5-S1 TLIF w. posterior instrumentation -Robot Nina Gauthier MD Postoperative day: 1 Postoperative status: doing well and marginal pain control Postoperative status narrative: Mobilize with physical therapy, limit bending, twisting, lifting Discontinue Mann catheter when mobilizing Multimodal pain management Disposition, [facility] as she has no assistance at home. Postoperative plan: routine post-op care Quality VTE Deep Vein Thrombosis/Pulmonary Embolism Present on Admission: No
[2021-09-02] MEDS: ACETAMINOPHEN 325 MG TABLET 650 MG PO (07:59)
[2021-09-02] MEDS: DOCUSATE 100 MG CAPSULE PO ×2 (07:59→20:15)
[2021-09-02] MEDS: METFORMIN HCL 500 MG TABLET 1000 MG PO ×2 (08:00→17:31)
[2021-09-02] MEDS: CHOLECALCIFEROL (VITAMIN D3) 1,000 UNIT TABLET 2000 UNIT PO (08:01)
[2021-09-02] MEDS: ASPIRIN EC 81 MG TABLET PO (08:01)
[2021-09-02] MEDS: INSULIN LISPRO 100 UNIT/ML 3ML VIAL SUBCUT ×7 (08:03→20:25)
[2021-09-02] MEDS: VIT C/E/ZN/COPPR/LUTEIN/ZEAXAN CAPSULE 1 CAP PO (08:04)
[2021-09-02] MEDS: LOSARTAN 25 MG TABLET PO (08:04)
--- NOTE | 2021-09-02 09:35 | PT.IIE ---
Current Diagnoses Spondylolisthesis, lumbar region (09/01/21) Spinal stenosis, lumbar region with neurogenic claudication (09/01/21) Surgery Performed Operation Date: 09/01/21 12:45 Actual Procedures p L4-5, L5-S1 TLIF w. posterior instrumentation -Robot - Nina Gauthier MD Surgical History (Last Reviewed 09/02/21 @ 07:06 by Howard Laguerre PA-C) History of 3 sections History of arthroplasty of right hip History of carpal tunnel surgery of left wrist History of carpal tunnel surgery of right wrist History of orthopedic surgery Hx of arthroscopy of right knee Hx of bilateral cataract extraction Hx of cholecystectomy Hx of toe surgery Medical History (Last Reviewed 09/02/21 @ 07:06 by Howard Laguerre PA-C) BCC (basal cell carcinoma) Diabetes Fall from ground level (08/13/21) Hearing impaired HLD (hyperlipidemia) Spinal stenosis Physical Therapy Inpatient Evaluation/Re-Eval M1 PT/OT-IP Prior Functional Status Start: 09/02/21 12:14 Freq: NEEDED Status: Active Protocol: Document 09/02/21 09:35 AB (Rec: 09/02/21 12:28 AB [email or web address]) Medical Review Prior Functional Status Medical History Reviewed Yes Communication able to make needs known Social History Household Members none Living Arrangements House Number of Floors (Floors) One Floor Number of Stairs To Enter/Railing? 1 step to enter Home Environment Standard Height Toilet,Walk in Shower Home Equipment Front Wheel Walker,Four Wheel Walker,Straight Cane,Shower Seat with Backrest,Hand Held Shower,Long Handled Sponge, Long Handled Shoe Horn,Automatic Serging Machine Operator ,Sock Aid,Grab Bars Near Toilet Additional Social History Comment Pt has an adjustable bed M2 PT-IP Current Condition Start: 09/02/21 12:14 Freq: NEEDED Status: Active Protocol: Document 09/02/21 09:35 AB (Rec: 09/02/21 12:28 AB [email or web address]) Physical Therapy Current Condition Current Condition Evaluation Date 09/02/21 Treatment Diagnosis s/p L4-5, L5S1 TLIF; difficulty in walking Onset Date 09/01/21 M3 PT-IP Subjective Start: 09/02/21 12:14 Freq: NEEDED Status: Active Protocol: Document 09/02/21 09:35 AB (Rec: 09/02/21 12:28 AB [id number]) Subjective Physical Therapy Visit Type Type Initial Evaluation Visit Start Time 09:35 Visit Stop Time 10:25 Total Visit Minutes 50 Number of CONDUCTOR PULLMAN Visits 0 Physical Therapy Visit Comments Patient Comments agreeable to do PT Therapy Pain Assessment Pain When Pain Assessed At Rest Pain Present Pain Present Pain Reported Location Lower Back Intensity 8 Scale Used Numeric (0 - 10) Pain Behaviors Facial Grimacing,Guarding, Wincing Pain Management Techniques Apply Cold,Distraction, Modification of Treatment,Re- positioning,Timing of Activity with Medications M4 PT-IP Mobility and Gait Start: 09/02/21 12:14 Freq: NEEDED Status: Active Protocol: Document 09/02/21 09:35 AB (Rec: 09/02/21 12:28 AB [email or web address]) PT-Bed Mobility Assessment Rolling Type of Rolling Log Rolling Supine to Sit Supine to Sit Maximum Assistance,1 Person Assistance Scooting Scooting to Edge of Bed Maximum Assistance PT-Transfer Assessment Sit to and From Stand Sit to and from Stand Moderate Assistance,1 Person Assistance,Use of Upper Extremities Equipment Transfer Assistive Device Bed Rail,Front Wheeled Walker Orthotic/Prosthetic Devices or Brace: No Transfers Transfer Destination Chair Transfer Technique Stand Step Pivot Transfer Ability Level of Assist Moderate Assistance,1 Person Assistance,Use of Upper Extremities Comments Mobility Comments educated pt on back precautions and log roll bed mobility. BP in supine: 111/ 44. completed supine to sit log roll max A and max cues. min A for sitting balanc mary jo EOB. c/o dizziness. BP: 105/ 44. repositioned pt on EOB with max A for scooting. pt sat on EOB for ~ 2 min and BP hecked: 106/39. pt also c/o increase back pain. nurse informed. positioned chair next to pt. pt completed sit to stand from EOB mod A and cues and step transfer to chair using FWW mod A and cues. positioned pt on the chair. BP checked after tranfer sitting on chair : 100/36. call light and table placed within reach. Gait Assessment Comments Gait Comments unable cue to decrease BP and c/o increase back pain PT-Balance Assessment Sitting Balance and Reactions Static Sitting Balance Ability Good Dynamic Sitting Balance Ability Fair Standing Balance and Reactions Static Standing Balance Ability Fair Dynamic Standing Balance Ability Poor Device Used FWW M5 PT-IP Objective Assessments Start: 09/02/21 12:14 Freq: NEEDED Status: Active Protocol: Document 09/02/21 09:35 AB (Rec: 09/02/21 12:28 AB [id number]) Orientation Orientation/Cognition Level of Alertness Alert Orientation Name,Place,Situation Language Function Ability Hard of Hearing Safety Awareness Decreased Safety Awareness Memory Description No Deficits Noted Gross Range of Motion Lower Extremity ROM Assessment Within Functional Limits Strength Lower Extremity Strength Assessment Bilaterally Impaired Hip 3+/5 Knee 4-/5 Coordination Assessment Gross Coordination Gross Coordination WNL Sensation Assessment Sensation Gross Sensation WNL Muscle Tone Muscle Tone WNL Yes M6 PT-IP Treatment Start: 09/02/21 12:14 Freq: NEEDED Status: Active Protocol: Document 09/02/21 09:35 AB (Rec: 09/02/21 12:28 AB [email or web address]) Physical Therapy Treatment Education Education Provided Precautions,Weight Bearing Status,Post-Op Packet,Safety M7 PT-IP Assessment and Plan Start: 09/02/21 12:14 Freq: NEEDED Status: Active Protocol: Document 09/02/21 09:35 AB (Rec: 09/02/21 12:28 AB [email or web address]) PT Summary Assessment and Plan Potential Rehabilitation Potential Good Status of Condition at Evaluation Evolving Summary Impairments Pain,ROM,Strength,Balance, Coordination,Sensation,Tone, Cognition,Bed Mobility, Transfers,Gait,Activity Tolerance Assessment Summary pt requiring max A for bed mobility and mod A for transfers using FWW but unable to tolerate much activity with decrease in BP and c/o increase back pain. Goals Bed Mobility Goal Standby Assistance Transfer Goal Standby Assistance,Front Wheeled Walker Gait Goal Standby Assistance,Front Wheel Walker Gait Distance 100 Other Goals up/down 1 step using FWW SBA Days to Meet Goals 10 Frequency of Treatment Frequency Of Treatment Twice a Day Treatment Plan Physical Therapy Treatment Plan Bed Mobility Training,Transfer Training,Gait Training, Therapeutic Exercise,Balance Retraining,Post Op Education, Discharge Planning,Hot or Cold Pack,Neuromuscular Re-ed, Coordination Retraining,Manual Therapy Precautions Lumbar Precautions Log Roll,No Twisting,Limit Bending,Lifting Restriction of 10 lbs,Gait Belt above Incisional Area Recommendations To Nursing Amount of Assist Needed 1 Person Assist Discharge Recommendations PT Discharge Recommendations SNF Rehab Transportation Needs at Discharge Wheelchair/Cabulance
--- NOTE | 2021-09-02 11:04 | OT.IP.EVAL ---
Current Diagnoses Spondylolisthesis, lumbar region (09/01/21) Spinal stenosis, lumbar region with neurogenic claudication (09/01/21) Surgery Performed Operation Date: 09/01/21 12:45 Actual Procedures p L4-5, L5-S1 TLIF w. posterior instrumentation -Robot - Nina Gauthier MD Past Medical History (Last Reviewed 09/02/21 @ 07:06 by Howard Laguerre PA-C) BCC (basal cell carcinoma) Diabetes Fall from ground level (08/13/21) Hearing impaired HLD (hyperlipidemia) Spinal stenosis Surgical History (Last Reviewed 09/02/21 @ 07:06 by Howard Laguerre PA-C) History of 3 sections History of arthroplasty of right hip History of carpal tunnel surgery of left wrist History of carpal tunnel surgery of right wrist History of orthopedic surgery Hx of arthroscopy of right knee Hx of bilateral cataract extraction Hx of cholecystectomy Hx of toe surgery Occupational Therapy Inpatient Evaluation/Re-Eval M1 PT/OT-IP Prior Functional Status Start: 09/02/21 11:09 Freq: NEEDED Status: Active Protocol: Document 09/02/21 11:10 [facility] (Rec: 09/02/21 11:24 [facility] [id number]) Medical Review Prior Functional Status Communication independent Activities of Daily Living and IADL's Pt states able to do her ADL's on her own. Social History Household Members none Living Arrangements House Number of Floors (Floors) One Floor Number of Stairs To Enter/Railing? One step from the front and garage. Home Environment Standard Height Toilet,Walk in Shower Home Equipment Front Wheel Walker,Four Wheel Walker,Straight Cane,Shower Seat without Backrest,Hand Held Shower,Long Handled Sponge,Long Handled Shoe Horn, Garage Attendant,Sock Aid,Grab Bars Near Toilet Additional Social History Comment Pt has an adjustable bed M2 OT-IP Current Condition Start: 09/02/21 11:09 Freq: Status: Active Protocol: Document 09/02/21 11:10 [facility] (Rec: 09/02/21 11:24 [facility] [id number]) Occupational Therapy Current Condition Current Condition Evaluation Date 09/02/21 Treatment Diagnosis S/p L4-5, L5-S1 TLIF Diagnosis Onset Date 09/01/21 M3 OT- IP Subjective and Pain Start: 09/02/21 11:09 Freq: Status: Active Protocol: Document 09/02/21 11:10 [facility] (Rec: 09/02/21 11:24 [facility] [id number]) OT- Subjective Occupational Therapy Visit Type Type Initial Evaluation Visit Start Time 10:33 Visit Stop Time 11:04 Total Visit Minutes 31 Occupational Therapy Visit Comments Patient Comments Pt in a lot of pain and wanting to get back to bed. Patient/Caregiver Goals TO go to skilled rehab. OT Pain Assessment Pain When Pain Assessed At Rest Pain Present Pain Present Pain Reported Location Lower Back Intensity 8 Scale Used Numeric (0 - 10) M4 OT- IP ADL's Start: 09/02/21 11:09 Freq: Status: Active Protocol: Document 09/02/21 11:10 [facility] (Rec: 09/02/21 11:24 [facility] [id number]) OT [id number] Comments OT Self-Feeding Comments NOt at meal time. OT ADL-Grooming Comments OT Grooming Comments NOt performed. OT ADL-Oral Care Comments Oral Care Comments Educated best to spit in to a cup to best follow her back precautions. OT ADL-Dressing General Eval Lower Body Dressing Ability Maximum Assistance Comments OT Dressing Comments Initiated practice of LB dressing equipment for elevator worker and sock aid. OT ADL-Toileting General Evaluation Toileting Ability Total Assistance Comments OT Toileting Comments Mann in place. OT ADL-Bathing Comments OT Bathing Comments NOt at this time as pt has too much pain. M5 OT- IP IADL's Start: 09/02/21 11:09 Freq: Status: Active Protocol: Document 09/02/21 11:10 [facility] (Rec: 09/02/21 11:24 [facility] [id number]) OT-Instrumental Activities of Daily Living Medication Management Medication Management No Deficits Identified Money Management Money Management No Deficits Identified M6 OT- IP Functional Cognition Start: 09/02/21 11:09 Freq: Status: Active Protocol: Document 09/02/21 11:10 [facility] (Rec: 09/02/21 11:24 [facility] [id number]) Cognitive Factors Limiting Selfcare Function Cognitive Ability Level of Alertness Alert Patient Orientation Name,Place,Situation Attention Span Ability Capable of Focused Attention, Capable of Sustained Attention Ability to Follow Commands Able to Follow One Step Commands Cognitive Comments Cognitive Assessment Comments Pt able to follow commands for back precautions and able to recall them. Pt needing reminders for safety to push up from the recliner when coming to stand. OT- Vision and Hearing OT- Hearing Assessment OT- Hearing Assessment WFL,Use of Hearing Aids OT- Vision Assessment Visual Acuity Glasses All The Time M7 OT- IP Mobility and Balance Start: 09/02/21 11:09 Freq: Status: Active Protocol: Document 09/02/21 11:10 [facility] (Rec: 09/02/21 11:24 [facility] [id number]) OT- Bed Mobility Assessment Sit to Supine Sit to Supine Assist Moderate Assistance,Maximum Assistance Scooting Scooting to Edge of Bed Minimal Assistance OT-Transfer Assessment Sit to and From Stand Sit to and from Stand Maximum Assistance Transfers Transfer Ability Moderate Assistance Technique Transfer Destination Bed,Chair Transfer Technique Stand Step Pivot Devices Transfer Assistive Devices Gait Belt,Front Wheeled Walker Comments Mobility Comments BP running low sitting in recliner with legs up 101/38, sitting in recliner upright and legs down 108/36, and nurse states okay to get pt back to bed as pt requesting to go back to bed. After transfer to bed , pt states feeling woozy BP 115/ 93, and back into supine 109/ 37. Pt bed alarm placed and notified nursing of pt's request for more pain medications. MAX AX to stand to FWW and MODA to transfer assist for balance and to help guide the FWW. Assist for leg /trunk back into bed. OT- Balance Assessment Sitting Balance and Reactions Static Sitting Balance Ability Good Dynamic Sitting Balance Ability Fair Standing Balance and Reactions Static Standing Balance Ability Fair Dynamic Standing Balance Ability Poor M8 OT- IP Objective Assessments Start: 09/02/21 11:09 Freq: Status: Active Protocol: Document 09/02/21 11:10 [facility] (Rec: 09/02/21 11:24 [facility] [id number]) OT-Muscle Tone Assessment Muscle Tone WNL Yes M9 OT- IP Assessment and Plan Start: 09/02/21 11:09 Freq: Status: Active Protocol: Document 09/02/21 11:10 [facility] (Rec: 09/02/21 11:24 [facility] [id number]) OT Summary Assessment and Plan Potential Rehabilitation Potential Good Analytic Complexity at Evaluation Low Summary OT Impairments Pain,Strength,Balance, Functional Mobility,Grooming, Dressing,Toileting,Bathing, Toilet Transfers,Shower Transfers,Activity Tolerance Progress Towards Goals Slow Progress due to Pain,Slow Progress due to Medical Issues Assessment Summary Pt low complexity and main barriers are pain, low bp and now needing extensive assist for mobility and ADL needs. Pt would benefit from skilled rehab. Pt is cooperative and motivated to get better. Pt to go to skilled rehab when medically stable. Goals Grooming Goal Independent Dressing Goal Independent Toileting Goal Independent Bathing Goal Independent Toilet Transfer Goal Independent Shower Transfer Goal Independent Patient/Caregiver Education Goal Demonstrate Post-Op Precautions Days to Meet Goals 15 Frequency of Treatment Frequency Of Treatment Once a Day Treatment Plan OT Treatment Plan ADL Training,Functional Mobility,Patient/Family Education,Discharge Planning Discharge Recommendations OT Discharge Recommendations SNF Rehab Transportation Needs at Discharge Wheelchair/Cabulance
--- NOTE | 2021-09-02 11:23 | CM.DANOTE ---
Addendum entered by Trang Riley R.N. 09/02/21 15:55: Cristiana at [facility] stated that they would accept the pt. Earliest would be as she would hit her 3 day inpatient stay. DCP to follow up with paperwork and clinicals at discharge. Trang Riley RN/BRENDAN Addendum entered by Trang Riley R.N. 09/02/21 14:30: DCP has referral out for [facility] and [facility]. Original Note: DCP Note: Payor: Medicare PCP: MD Theresa Pt is an 85 y. F status post TLIF on 09/01. Pt has a PMH of arthritis, diabetes, GERD, Hyperlipidemia, and back pain. Pt currently has a daniels cath in place. Pt is to work with PT today for an evaluation. Pt currently lives alone and does not have any help. DCP met with pt this morning bedside. Pt up in bed eating breakfast. Pt states that she lives alone in a 1 story house in [place]. Pt lives alone but has a daughter Sara who is nearby. Pt states that she is fairly independent at baseline and sometimes uses a cane. Pt states that if she needs to go to a SNF to preferably do one here in [place]. Pt states she does not want to go anywhere in [place]. DCP explained to her that due to current circumstances, bed availability is limited and sometimes its just where we could get. Pt understands. Pt denies any other concerns. Whiteboard updated and instructed to call DCP with any other information or questions that may arise. P: DCP to await PT eval and determine if SNF is appropriate. Once medically clear, pt to discharge to home vs SNF. DCP to continue to follow. Trang Riley RN/BRENDAN Discharge Planning/Care Management CM Discharge Assessment Start: 09/02/21 09:14 Freq: Status: Active Protocol: Document 09/02/21 09:14 [facility] (Rec: 09/02/21 09:15 [facility] [id number]) Discharge Planning Assessment Assigned Slate Mixer Trang Riley RN/BRENDAN Advance Directives? Yes Advance Directives on File No History Provided By Patient,Medical Record Prior Living Arrangements House Household Members none Independent with ADL's Yes Is patient alert and oriented? Yes Caregiver for Another No DME Already Rented / Owned Cane Patient/Family Preference Nursing Home Facility Barriers to Discharge Yes Comment Pt lives alone Discharge Plan Nursing Home Facility Referrals Initiated Nursing Home Additional Comment Awaiting recommendations from PT. Whiteboard Updated in Patient Room with Yes name and ext. # of Slate Mixer Comment Instructed to call Review Status In Process Please Provide Date Initial DC 09/02/21 Assessment Was Performed Next Review Type Continued Stay Review Pre-Anesthesia Assessment Start: 08/25/21 09:49 Freq: Status: Complete Protocol: Document 08/25/21 09:49 [facility] (Rec: 08/25/21 10:45 [facility] [id number]) Pre-Anesthesia Assessment Preferred Name Becka Patient Information Reviewed Via Phone Assessment Assessment Completed With Patient Comment Labs/ECG done per pt, not here , COVID screen @ 08/29/21 Primary Care Provider Андрей Cardenas Seen Specialist in Last 12 Months Yes Specialist Seen Orthopedist,Other Primary Language Japanese Linux Unix Administrator Required No Height 162.56 cm Weight 70.307 kg Body Mass Index (BMI) 26.6 Hearing Ability Hard of Hearing,Use of Hearing Aid Visual Assist Glasses Dentition Type Teeth, Natural Present Barriers to Learning None Other Aids Yes: Continuous glucose monitor Hx Anesthesia Reactions No Hx Family Anesthesia Reaction No Hx Malignant Hyperthermia No Hx Blood Transfusions No Anesthesia Review Requested No Credentialing Assistant Yes: Pt would like to go to a SNF [place]-children are supportive Additional comment but are not available for overnight or all day assistance alcohol intake current alcohol intake frequency holidays/special occasions only Smoking Status Never smoker Substance Use Type does not use Pain Present Pain Reported Musculoskeletal Symptoms Abnormal Gait,Back Pain, Difficulty Walking History of Falling (Recent or History of Yes ) Patient is completely paralyzed or No completely immobile Prosthesis or Orthotic Device Cane Mental Status Oriented to own ability Is patient on oxygen? No Does patient have DAS/SOB No Hx Sleep Apnea No Currently Taking a Beta Rodrigo No Hx Chest Pain No Hx SOB No Hx Syncope or Dizziness No Anti-Coagulant Therapy No Has a Hiv Prevention Specialist No Cardiac Testing No Hx Pacemaker/ICD No Pacemaker Rep Required? No Cardiac Clearance Received Not Applicable Diet Type At Home Regular dysphagia No Bladder Pattern Frequency Urinary Catheter Present No Hx Urinary Self Catheterization No Diabetes Yes Patient No Lactating No Hx Drug Resistant Organism No Presence of External or Internal Medical Yes: Continuous glucose Devices monitor Have you had any close contact with No someone diagnosed with COVID-19? Received a COVID vaccine? Yes Received all doses? Yes Marital Status / Lives With none Prior Living Arrangements House Number of Floors (Floors) One Floor Support System Child/Children Does the Patient Have Assistance After No: No overnight or mcc Surgery day assistance Patient Discharge Plan Description Other Comment Pt would like to go to a SNF [place]-children are supportive Additional comment but not available for overnight or all day assistance Feels Safe in Current Environment Yes Been Physically Hurt or Threatened By a No Person in Current Environment Do you have thoughts of harming yourself None or others? Are you currently considering suicide? No Do you have a plan to hurt yourself or No Plan others? Do You Have Any Spiritual Beliefs That No May Affect Your HC Choices? Do You Have Any Cultural Practices That No May Affect Your HC Choices? Comment Jewish Who Can We Speak to About Patient's Care Family, friends Identifying Code for Release of Patient Declines to issue Information Health Care Proxy/Next of Kin Sara (daughter) Health Care Proxy Emergency Contact Name Kishor (son) Emergency Contact Advance Directives? No Power of Bulk Station Agent Yes Power of Bulk Station Agent Name Sara (daughter) Power of Bulk Station Agent PAC Instructions Diabetes instructions,Durable medical equipment,Medications to take/avoid,Nasal antibiotic ,No ETOH/petroleum product on skin DOS,NPO,Pre-surgical wash ,Sensory aids,Sturdy shoes/ comfortable clothes,Do not bring valuables and remove jewelry
--- NOTE | 2021-09-02 15:06 | CM.DPNOTE ---
Emailed referral to [facility]. Agata Javier CM Assist.
--- NOTE | 2021-09-02 15:09 | PT-IP ANOTE ---
Attempted to see at 14:30, pt refused PT reporting 10/10 pain. RN aware. Pt requests treatment tomorrow, would like to rest today. Checked again at 15:07, pt sleeping soundly. Will attempt tomorrow AM following pain meds.
[2021-09-02] MEDS: ATORVASTATIN 20 MG TABLET 40 MG PO (20:15)
[2021-09-02] MEDS: MORPHINE 2 MG/ML INJ 1 MG IV (20:16)
[2021-09-02] MEDS: SENNOSIDES 8.6 MG TABLET 17.2 MG PO (20:16)
[2021-09-02] MEDS: INSULIN GLARGINE 100 UNIT/ML 3ML PEN 20 UNIT SUBCUT (20:25)
[2021-09-03] VITALS (11 sets, daily range): BP systolic 103–147; BP diastolic 42–57; PULSE 87–102; RESP 16–18; TEMP 36.5–37.1; O2SAT 91–97
[2021-09-03] MEDS: OXYCODONE IR 5 MG TABLET 10 MG PO ×2 (00:34→05:28)
[2021-09-03] MEDS: hydrOXYzine pamoate 25 MG CAPSULE PO ×2 (00:34→05:28)
--- NOTE | 2021-09-03 07:50 | P.PN_ITS ---
Subjective Subjective Date Patient Seen: 09/03/21 Time Patient Seen: 07:50 Interval history: Nursing complains of pt somnolence and an episode of decreased O2 saturation yesterday related to PRN morphine. Pt herself this morning is drowsy but arousable and states 'I feel like I'm floating.' Did not work w/ PT yesterday. Daniels still in. Planning to go to SNF since she has no help at home. Exam Vital Signs (past 8 hours): - 09/03/21 00:22 09/03/21 05:10 Temperature 97.9 F 98.0 F Pulse Rate 95 H 101 H Respiratory Rate 18 18 Blood Pressure 113/54 L 133/57 L Pulse Oximetry 94 94 Oxygen Flow Rate 2 2 Oxygen Delivery Method Nasal Cannula Oxygen Flow Rate 2 Narrative Exam Narrative: 5/5 strength in hip flexors, quadriceps, hamstrings, DF, PF, EHL bilaterally. Sensation to light touch intact in BLE. Calves soft, compressible, nontender and without palpable cords or masses. Pt unable to sit up or log roll in order for me to check her dressing. Objective Labs Result Diagrams: 09/02/21 05:52 [facility] Medical History (Updated 09/03/21 @ 07:54 by Sheila Colin PA-C) BCC (basal cell carcinoma) Diabetes Fall from ground level (08/13/21) Hearing impaired HLD (hyperlipidemia) Spinal stenosis Surgical History (Updated 09/03/21 @ 07:54 by Sheila Colin PA-C) History of 3 sections History of arthroplasty of right hip History of carpal tunnel surgery of left wrist History of carpal tunnel surgery of right wrist History of orthopedic surgery Hx of arthroscopy of right knee Hx of bilateral cataract extraction Hx of cholecystectomy Hx of toe surgery Social History household members: none lives independently: Yes Smoking Status: Never smoker alcohol intake: current Assessment & Plan Post-op Assessment and plan (1) S/P lumbar fusion: Assessment and Plan narrative: D/c morphine, d/c hydroxyzine, d/c oxycodone 10 mg. Add oxycodone 5 mg and diazepam 2 mg. D/c daniels. PT today. CM working on SNF placement. (2) Diabetes: Assessment and Plan narrative: Fingersticks < 200 yesterday. Will continue to monitor and add SSI if needed. Postoperative Procedures: Procedures Operation Date: 09/01/21 12:45 Actual Procedure Side Surgeon p L4-5, L5-S1 TLIF w. posterior instrumentation -Robot Nina Gauthier MD Postoperative day: 2 Quality VTE Deep Vein Thrombosis/Pulmonary Embolism Present on Admission: No
[2021-09-03] MEDS: METFORMIN HCL 500 MG TABLET 1000 MG PO ×2 (09:25→17:25)
[2021-09-03] MEDS: ASPIRIN EC 81 MG TABLET PO (09:25)
[2021-09-03] MEDS: OXYCODONE IR 5 MG TABLET PO ×2 (09:25→20:27)
[2021-09-03] MEDS: DOCUSATE 100 MG CAPSULE PO ×2 (09:26→20:28)
[2021-09-03] MEDS: VIT C/E/ZN/COPPR/LUTEIN/ZEAXAN CAPSULE 1 CAP PO (09:26)
[2021-09-03] MEDS: LOSARTAN 25 MG TABLET PO (09:26)
[2021-09-03] MEDS: INSULIN LISPRO 100 UNIT/ML 3ML VIAL SUBCUT ×7 (09:27→20:23)
[2021-09-03] MEDS: CHOLECALCIFEROL (VITAMIN D3) 1,000 UNIT TABLET 2000 UNIT PO (09:34)
--- NOTE | 2021-09-03 10:13 | OT.IP.TRT ---
Current Diagnoses Type 2 diabetes mellitus without complications (09/01/21) Spondylolisthesis, lumbar region (09/01/21) Spinal stenosis, lumbar region with neurogenic claudication (09/01/21) Arthrodesis status (09/01/21) Surgery Performed Operation Date: 09/01/21 12:45 Actual Procedures p L4-5, L5-S1 TLIF w. posterior instrumentation -Robot - Nina Gauthier MD Occupational Therapy Treatment Note M2 OT-IP Current Condition Start: 09/02/21 11:09 Freq: Status: Active Protocol: Document 09/02/21 11:10 [facility] (Rec: 09/02/21 11:24 [facility] [id number]) Occupational Therapy Current Condition Current Condition Evaluation Date 09/02/21 Treatment Diagnosis S/p L4-5, L5-S1 TLIF Diagnosis Onset Date 09/01/21 M3 OT- IP Subjective and Pain Start: 09/02/21 11:09 Freq: Status: Active Protocol: Document 09/03/21 10:51 [facility] (Rec: 09/03/21 11:05 [facility] [id number]) OT- Subjective Occupational Therapy Visit Type Type Treatment Note Visit Start Time 09:13 Visit Stop Time 10:13 Total Visit Minutes 60 Occupational Therapy Visit Comments Patient Comments Pt agreed to get up to the recliner. Patient/Caregiver Goals TO go to skilled rehab. OT Pain Assessment Pain When Pain Assessed At Rest Pain Present Pain Present Pain Reported Location Lower Back Intensity 8 Scale Used Numeric (0 - 10) M4 OT- IP ADL's Start: 09/02/21 11:09 Freq: Status: Active Protocol: Document 09/02/21 11:10 [facility] (Rec: 09/02/21 11:24 [facility] [id number]) OT [id number]-Vpruase Comments OT Self-Feeding Comments NOt at meal time. OT ADL-Grooming Comments OT Grooming Comments NOt performed. OT ADL-Oral Care Comments Oral Care Comments Educated best to spit in to a cup to best follow her back precautions. OT ADL-Dressing General Eval Lower Body Dressing Ability Maximum Assistance Comments OT Dressing Comments Initiated practiced on LB dressing equipment for director of medical review and sock aid. OT ADL-Toileting General Evaluation Toileting Ability Total Assistance Comments OT Toileting Comments Mann in place. OT ADL-Bathing Comments OT Bathing Comments NOt at this time as pt has too much pain. M5 OT- IP IADL's Start: 09/02/21 11:09 Freq: Status: Active Protocol: Document 09/02/21 11:10 [facility] (Rec: 09/02/21 11:24 [facility] [id number]) OT-Instrumental Activities of Daily Living Medication Management Medication Management No Deficits Identified Money Management Money Management No Deficits Identified M6 OT- IP Functional Cognition Start: 09/02/21 11:09 Freq: Status: Active Protocol: Document 09/03/21 10:51 [facility] (Rec: 09/03/21 11:05 [facility] [id number]) Cognitive Factors Limiting Selfcare Function Cognitive Ability Level of Alertness Alert Patient Orientation Name,Place,Situation Attention Span Ability Capable of Focused Attention, Capable of Sustained Attention Ability to Follow Commands Able to Follow One Step Commands Safety Awareness Decreased Recall of Precautions Cognitive Comments Cognitive Assessment Comments Pt a bit groogy today and needing assist to recall her back precautions, slow to initiate movements, and needing vc for hand placements to push up from the bed. M7 OT- IP Mobility and Balance Start: 09/02/21 11:09 Freq: Status: Active Protocol: Document 09/03/21 10:51 [facility] (Rec: 09/03/21 11:05 [facility] [id number]) OT- Bed Mobility Assessment Supine to Sit Supine to Sit Assist Maximum Assistance,1 Person Assistance OT-Transfer Assessment Sit to and From Stand Sit to and from Stand Maximum Assistance,2 Person Assistance Transfers Transfer Ability Maximum Assistance,2 Person Assistance Technique Transfer Destination Bed,Chair Transfer Technique Stand Pivot Devices Transfer Assistive Devices None,Gait Belt Comments Mobility Comments Pt needing several attempts to come to stand as not able to straighten her legs up all the way. Pt not able to stand up all the way even with her BUE pushing down on the FWW to assist. Pt not able to picker and packer her feet at this time, therefore able to do stand pivot transfer with MAX AX 2. At this time best for pt to be OT/PT transfer only versus flavio lift. OT- Balance Assessment Sitting Balance and Reactions Static Sitting Balance Ability Fair Dynamic Sitting Balance Ability Poor Standing Balance and Reactions Static Standing Balance Ability Poor Comments Other Balance Tests/Deviations/Treatment Pt having more difficulty to : sit upright today and leaning backwards. Pt BP 122/28 with HOB up, 122/49 sitting and woozy, and after transfer to the recliner 114/50, nursing notified. M8 OT- IP Objective Assessments Start: 09/02/21 11:09 Freq: Status: Active Protocol: Document 09/02/21 11:10 [facility] (Rec: 09/02/21 11:24 [facility] [id number]) OT-Muscle Tone Assessment Muscle Tone WNL Yes M9 OT- IP Assessment and Plan Start: 09/02/21 11:09 Freq: Status: Active Protocol: Document 09/03/21 10:51 [facility] (Rec: 09/03/21 11:05 [facility] [id number]) OT Summary Assessment and Plan Potential Rehabilitation Potential Good Analytic Complexity at Evaluation Low Summary OT Impairments Pain,Strength,Balance, Functional Mobility,Grooming, Dressing,Toileting,Bathing, Toilet Transfers,Shower Transfers,Activity Tolerance Progress Towards Goals Slow Progress due to Pain,Slow Progress due to Medical Issues Assessment Summary Pt needing more assist today and BUE appear weaker as now needing assist to help hold her water bottle. Pt able to do grooming needs while seated but needing assist for set-up. Pt will greatly benefit from skilled rehab. Goals Grooming Goal Independent Dressing Goal Independent Toilet Transfer Goal Independent Shower Transfer Goal Independent Patient/Caregiver Education Goal Demonstrate Post-Op Precautions Days to Meet Goals 25 Frequency of Treatment Frequency Of Treatment Once a Day Treatment Plan OT Treatment Plan ADL Training,Functional Mobility,Patient/Family Education,Discharge Planning Discharge Recommendations OT Discharge Recommendations SNF Rehab Transportation Needs at Discharge Wheelchair/Cabulance
--- NOTE | 2021-09-03 11:06 | PT.IPTN ---
Current Diagnoses Type 2 diabetes mellitus without complications (09/01/21) Spondylolisthesis, lumbar region (09/01/21) Spinal stenosis, lumbar region with neurogenic claudication (09/01/21) Arthrodesis status (09/01/21) Surgery Performed Operation Date: 09/01/21 12:45 Actual Procedures p L4-5, L5-S1 TLIF w. posterior instrumentation -Robot - Nina Gauthier MD Physical Therapy Treatment Note M2 PT-IP Current Condition Start: 09/02/21 12:14 Freq: NEEDED Status: Active Protocol: Document 09/02/21 09:35 AB (Rec: 09/02/21 12:28 AB [email or web address]) Physical Therapy Current Condition Current Condition Evaluation Date 09/02/21 Treatment Diagnosis s/p L4-5, L5S1 TLIF; difficulty in walking Onset Date 09/01/21 M3 PT-IP Subjective Start: 09/02/21 12:14 Freq: NEEDED Status: Active Protocol: Document 09/03/21 11:06 AB (Rec: 09/03/21 12:52 AB [email or web address]) Subjective Physical Therapy Visit Type Type Treatment Note Visit Start Time 11:06 Visit Stop Time 11:50 Total Visit Minutes 44 Number of FRAME ASSEMBLER Visits 0 Physical Therapy Visit Comments Patient Comments pt agreed to do PT Therapy Pain Assessment Pain When Pain Assessed At Rest Pain Present Pain Present Pain Reported Location Lower Back Intensity 10 Scale Used Numeric (0 - 10) Pain Management Techniques Apply Cold,Distraction, Modification of Treatment,Re- positioning,Timing of Activity with Medications M4 PT-IP Mobility and Gait Start: 09/02/21 12:14 Freq: NEEDED Status: Active Protocol: Document 09/03/21 11:06 AB (Rec: 09/03/21 12:52 AB [email or web address]) PT-Transfer Assessment Sit to and From Stand Sit to and from Stand Maximum Assistance,1 Person Assistance,2 Person Assistance ,Use of Upper Extremities Equipment Transfer Assistive Device Gait Belt,Front Wheeled Walker Orthotic/Prosthetic Devices or Brace: No Comments Mobility Comments pt sitting on chair. Pt is lethargic and very slow with moving and following directions. completed seated LAQs on BLE with 5 sec hold x 5 reps. attempted sit to stand but unable. completed seated push up and cued on techniques max A x 1-2 and max cues. completed x 5 reps. Pt was able to stand using FWW for support max A x 1-2 and max cues but only tolerated ~ 5 sec of standing and requested to sit down. pt rested and agreed to stand again. completed sit to stand max A x 1-2 and max cues with 2 attempts. max A for standing balance using FWW for support and completed standing marching in place max A and max cues. decrease BLE elevation. increase posterior trunk lean. pt sat back on chair max A for controlled descent. total A for scooting backwards to the chair. positioned on the chair. call light and table placed within reach. M5 PT-IP Objective Assessments Start: 09/02/21 12:14 Freq: NEEDED Status: Active Protocol: Document 09/02/21 09:35 AB (Rec: 09/02/21 12:28 AB [email or web address]) Orientation Orientation/Cognition Level of Alertness Alert Orientation Name,Place,Situation Language Function Ability Hard of Hearing Safety Awareness Decreased Safety Awareness Memory Description No Deficits Noted Gross Range of Motion Lower Extremity ROM Assessment Within Functional Limits Strength Lower Extremity Strength Assessment Bilaterally Impaired Hip 3+/5 Knee 4-/5 Coordination Assessment Gross Coordination Gross Coordination WNL Sensation Assessment Sensation Gross Sensation WNL Muscle Tone Muscle Tone WNL Yes M6 PT-IP Treatment Start: 09/02/21 12:14 Freq: NEEDED Status: Active Protocol: Document 09/03/21 11:06 AB (Rec: 09/03/21 12:52 AB [email or web address]) Physical Therapy Treatment Education Education Provided Precautions,Safety Other Treatments Other Treatment Performed LAQs seated 5 sec hold BLE M7 PT-IP Assessment and Plan Start: 09/02/21 12:14 Freq: NEEDED Status: Active Protocol: Document 09/03/21 11:06 AB (Rec: 09/03/21 12:52 AB [email or web address]) PT Summary Assessment and Plan Potential Rehabilitation Potential Fair Summary Impairments Pain,ROM,Strength,Balance, Coordination,Sensation,Tone, Cognition,Bed Mobility, Transfers,Gait,Activity Tolerance Progress Towards Goals Slow Progress due to Pain,Slow Progress due to Activity Tolerance Assessment Summary pt requiring max A 1-2 with sit to stand and unable to ambulated this morning but was able to do marching in place using FWW for support. pt c/o increase back pain but is also lethargic and stated that she feels her brain is fuzzy. pt will require SNF rehab to improve overall strength and mobility. will continue to assess progress. Goals Bed Mobility Goal Standby Assistance Transfer Goal Standby Assistance,Front Wheeled Walker Gait Goal Standby Assistance,Front Wheel Walker Gait Distance 100 Other Goals up/down 1 step using FWW SBA Days to Meet Goals 10 Frequency of Treatment Frequency Of Treatment Twice a Day Treatment Plan Physical Therapy Treatment Plan Bed Mobility Training,Transfer Training,Gait Training, Therapeutic Exercise,Balance Retraining,Post Op Education, Discharge Planning,Hot or Cold Pack,Neuromuscular Re-ed, Coordination Retraining,Manual Therapy Precautions Lumbar Precautions Log Roll,No Twisting,Limit Bending,Lifting Restriction of 10 lbs,Gait Belt above Incisional Area Recommendations To Nursing Amount of Assist Needed 1 Person Assist Discharge Recommendations PT Discharge Recommendations SNF Rehab Transportation Needs at Discharge Wheelchair/Cabulance
[2021-09-03] MEDS: ACETAMINOPHEN 325 MG TABLET 650 MG PO ×2 (12:00→20:25)
--- NOTE | 2021-09-03 13:03 | PC.NURSE ---
Pt has an order to have her daniels catheter removed. Pt declined and is now PT/OT Satinder only. Will readress catheter removal with Pt and have already discussed removal with Pt's daughter who is currently at the bedside and request that daniels be left in for today and reassessed with Ortho and Pt.
--- NOTE | 2021-09-03 13:41 | PT.IPTN ---
Current Diagnoses Type 2 diabetes mellitus without complications (09/01/21) Spondylolisthesis, lumbar region (09/01/21) Spinal stenosis, lumbar region with neurogenic claudication (09/01/21) Arthrodesis status (09/01/21) Surgery Performed Operation Date: 09/01/21 12:45 Actual Procedures p L4-5, L5-S1 TLIF w. posterior instrumentation -Robot - Nina Gauthier MD Physical Therapy Treatment Note M2 PT-IP Current Condition Start: 09/02/21 12:14 Freq: NEEDED Status: Active Protocol: Document 09/02/21 09:35 AB (Rec: 09/02/21 12:28 AB [email or web address]) Physical Therapy Current Condition Current Condition Evaluation Date 09/02/21 Treatment Diagnosis s/p L4-5, L5S1 TLIF; difficulty in walking Onset Date 09/01/21 M3 PT-IP Subjective Start: 09/02/21 12:14 Freq: NEEDED Status: Active Protocol: Document 09/03/21 13:41 AB (Rec: 09/03/21 14:42 AB [email or web address]) Subjective Physical Therapy Visit Type Type Treatment Note Visit Start Time 13:41 Visit Stop Time 14:14 Total Visit Minutes 33 Number of CRYPTOLOGIST Visits 0 Physical Therapy Visit Comments Patient Comments pt is agreeable to do PT; requesting to go back to bed Therapy Pain Assessment Pain When Pain Assessed At Rest Pain Present Pain Present Pain Reported Location Lower Back Intensity 8 Scale Used increases to 10 with mobility Pain Management Techniques Distraction,Modification of Treatment,Re-positioning, Timing of Activity with Medications M4 PT-IP Mobility and Gait Start: 09/02/21 12:14 Freq: NEEDED Status: Active Protocol: Document 09/03/21 13:41 AB (Rec: 09/03/21 14:42 AB [email or web address]) PT-Bed Mobility Assessment Sit to Supine Sit to Supine Maximum Assistance,1 Person Assistance,Bedrails PT-Transfer Assessment Sit to and From Stand Sit to and from Stand Maximum Assistance,1 Person Assistance,Use of Upper Extremities Equipment Transfer Assistive Device Gait Belt,Front Wheeled Walker Orthotic/Prosthetic Devices or Brace: No Transfers Transfer Destination Bed Transfer Technique Stand Step Pivot Transfer Ability Level of Assist Maximum Assistance,1 Person Assistance,Use of Upper Extremities Comments Mobility Comments daughter in room with pt. pt is more alert and moving better this afternoon. continues to c/o increase back pain. requesting to go back to bed. completed sit to stand max A and max cues and step transfer to bed using FWW max A and max cues. pt refused further activities. completed log roll sit to supine max a and max cues. positioned pt in bed. call light and table placed within reach. Gait Assessment Comments Gait Comments unable at this time M5 PT-IP Objective Assessments Start: 09/02/21 12:14 Freq: NEEDED Status: Active Protocol: Document 09/02/21 09:35 AB (Rec: 09/02/21 12:28 AB [email or web address]) Orientation Orientation/Cognition Level of Alertness Alert Orientation Name,Place,Situation Language Function Ability Hard of Hearing Safety Awareness Decreased Safety Awareness Memory Description No Deficits Noted Gross Range of Motion Lower Extremity ROM Assessment Within Functional Limits Strength Lower Extremity Strength Assessment Bilaterally Impaired Hip 3+/5 Knee 4-/5 Coordination Assessment Gross Coordination Gross Coordination WNL Sensation Assessment Sensation Gross Sensation WNL Muscle Tone Muscle Tone WNL Yes M6 PT-IP Treatment Start: 09/02/21 12:14 Freq: NEEDED Status: Active Protocol: Document 09/03/21 13:41 AB (Rec: 09/03/21 14:42 AB [email or web address]) Physical Therapy Treatment Education Education Provided Safety M7 PT-IP Assessment and Plan Start: 09/02/21 12:14 Freq: NEEDED Status: Active Protocol: Document 09/03/21 13:41 AB (Rec: 09/03/21 14:42 AB [email or web address]) PT Summary Assessment and Plan Potential Rehabilitation Potential Fair Summary Impairments Pain,ROM,Strength,Balance, Coordination,Sensation,Tone, Cognition,Bed Mobility, Transfers,Gait,Activity Tolerance Progress Towards Goals Slow Progress due to Pain,Slow Progress due to Activity Tolerance Assessment Summary pt requiring max a with mobility using FWW and presents with decrease activity tolerance and increase pain affecting mobility. recommending 2 person transfer with nursing staff using FWW and transfers only at this time. pt will require SNF rehab to improve mobility. Goals Bed Mobility Goal Standby Assistance Transfer Goal Standby Assistance,Front Wheeled Walker Gait Goal Standby Assistance,Front Wheel Walker Gait Distance 100 Other Goals up/down 1 step using FWW SBA Days to Meet Goals 10 Frequency of Treatment Frequency Of Treatment Twice a Day Treatment Plan Physical Therapy Treatment Plan Bed Mobility Training,Transfer Training,Gait Training, Therapeutic Exercise,Balance Retraining,Post Op Education, Discharge Planning,Hot or Cold Pack,Neuromuscular Re-ed, Coordination Retraining,Manual Therapy Precautions Lumbar Precautions Log Roll,No Twisting,Limit Bending,Lifting Restriction of 10 lbs,Gait Belt above Incisional Area Recommendations To Nursing Amount of Assist Needed 1 Person Assist Discharge Recommendations PT Discharge Recommendations SNF Rehab Transportation Needs at Discharge Wheelchair/Cabulance
[2021-09-03] MEDS: INSULIN GLARGINE 100 UNIT/ML 3ML PEN 20 UNIT SUBCUT (20:22)
[2021-09-03] MEDS: SENNOSIDES 8.6 MG TABLET 17.2 MG PO (20:27)
[2021-09-03] MEDS: ATORVASTATIN 20 MG TABLET 40 MG PO (20:28)
[2021-09-04] MEDS: OXYCODONE IR 5 MG TABLET PO ×3 (02:19→09:21)
[2021-09-04 04:35] VITALS: BP 124/71; PULSE 89; RESP 18; TEMP 36.7; O2SAT 95
[2021-09-04] MEDS: ACETAMINOPHEN 325 MG TABLET 650 MG PO (06:16)
[2021-09-04 07:27] VITALS: O2SAT 95
[2021-09-04] MEDS: INSULIN LISPRO 100 UNIT/ML 3ML VIAL SUBCUT ×2 (09:11)
[2021-09-04 09:12] VITALS: BP 113/43
[2021-09-04] MEDS: METFORMIN HCL 500 MG TABLET 1000 MG PO (09:12)
[2021-09-04] MEDS: VIT C/E/ZN/COPPR/LUTEIN/ZEAXAN CAPSULE 1 CAP PO (09:12)
[2021-09-04] MEDS: LOSARTAN 25 MG TABLET PO (09:12)
[2021-09-04] MEDS: ASPIRIN EC 81 MG TABLET PO (09:12)
[2021-09-04] MEDS: CHOLECALCIFEROL (VITAMIN D3) 1,000 UNIT TABLET 2000 UNIT PO (09:12)
[2021-09-04] MEDS: DOCUSATE 100 MG CAPSULE PO (09:14)
--- NOTE | 2021-09-04 09:15 | PT.IPTN ---
Current Diagnoses Type 2 diabetes mellitus without complications (09/01/21) Spondylolisthesis, lumbar region (09/01/21) Spinal stenosis, lumbar region with neurogenic claudication (09/01/21) Arthrodesis status (09/01/21) Surgery Performed Operation Date: 09/01/21 12:45 Actual Procedures p L4-5, L5-S1 TLIF w. posterior instrumentation -Robot - Nina Gauthier MD Physical Therapy Treatment Note M2 PT-IP Current Condition Start: 09/02/21 12:14 Freq: NEEDED Status: Active Protocol: Document 09/02/21 09:35 AB (Rec: 09/02/21 12:28 AB [email or web address]) Physical Therapy Current Condition Current Condition Evaluation Date 09/02/21 Treatment Diagnosis s/p L4-5, L5S1 TLIF; difficulty in walking Onset Date 09/01/21 M3 PT-IP Subjective Start: 09/02/21 12:14 Freq: NEEDED Status: Active Protocol: Document 09/04/21 09:15 AB (Rec: 09/04/21 12:22 AB [email or web address]) Subjective Physical Therapy Visit Type Type Treatment Note Visit Start Time 09:15 Visit Stop Time 09:31 Total Visit Minutes 16 Number of ESTHETICIAN/SKIN THERAPIST Visits 0 Physical Therapy Visit Comments Patient Comments agreeable to do PT Therapy Pain Assessment Pain When Pain Assessed At Rest Pain Present Pain Present Pain Reported Location Lower Back Intensity 8 Scale Used Numeric (0 - 10) Pain Management Techniques Apply Cold,Distraction, Modification of Treatment,Re- positioning,Timing of Activity with Medications M4 PT-IP Mobility and Gait Start: 09/02/21 12:14 Freq: NEEDED Status: Active Protocol: Document 09/04/21 09:15 AB (Rec: 09/04/21 12:22 AB [email or web address]) PT-Bed Mobility Assessment Rolling Type of Rolling Log Rolling Level of Assist Minimal Assistance Supine to Sit Supine to Sit Moderate Assistance,1 Person Assistance PT-Transfer Assessment Sit to and From Stand Sit to and from Stand Moderate Assistance,Maximum Assistance,1 Person Assistance ,Use of Upper Extremities Equipment Transfer Assistive Device Bed Rail,Front Wheeled Walker Transfers Transfer Destination Chair Transfer Technique ambulated Transfer Ability Level of Assist Moderate Assistance,Maximum Assistance,1 Person Assistance ,Use of Upper Extremities Comments Mobility Comments completed supine to sit min A and max cues. completed sit to stand mod to max A and max cues and able to ambulate towards the chair ~ 12 ft using FWW mod to max A and max cues. antalgic shuffling gait noted. pt agreed to sit up on chair. positioned on chair. call light and table placed wtihin reach. Gait Assessment Gait Gait Assistance Required: Moderate Assistance,Maximum Assistance Distance (Feet) 12 Able to Maintain Weight Bearing Status Yes During Gait Assistive Devices Assistive Device Gait Belt,Front Wheeled Walker Orthotic/Prosthetic Devices or Brace: No Gait Deviations General Gait Pattern Antalgic,Decreased Stride Length,Decreased Feet Clearance,Step-to Gait Factors Limiting Gait Function Factors Limiting Gait Function Decreased Activity Tolerance, Decreased Strength,Difficulty Following Directions,Limited Range of Motion,Pain,Poor Balance,Poor Safety Awareness M5 PT-IP Objective Assessments Start: 09/02/21 12:14 Freq: NEEDED Status: Active Protocol: Document 09/02/21 09:35 AB (Rec: 09/02/21 12:28 AB [email or web address]) Orientation Orientation/Cognition Level of Alertness Alert Orientation Name,Place,Situation Language Function Ability Hard of Hearing Safety Awareness Decreased Safety Awareness Memory Description No Deficits Noted Gross Range of Motion Lower Extremity ROM Assessment Within Functional Limits Strength Lower Extremity Strength Assessment Bilaterally Impaired Hip 3+/5 Knee 4-/5 Coordination Assessment Gross Coordination Gross Coordination WNL Sensation Assessment Sensation Gross Sensation WNL Muscle Tone Muscle Tone WNL Yes M6 PT-IP Treatment Start: 09/02/21 12:14 Freq: NEEDED Status: Active Protocol: Document 09/04/21 09:15 AB (Rec: 09/04/21 12:22 AB [email or web address]) Physical Therapy Treatment Education Education Provided Precautions,Safety M7 PT-IP Assessment and Plan Start: 09/02/21 12:14 Freq: NEEDED Status: Active Protocol: Document 09/04/21 09:15 AB (Rec: 09/04/21 12:22 AB [email or web address]) PT Summary Assessment and Plan Potential Rehabilitation Potential Fair Summary Impairments Pain,ROM,Strength,Balance, Coordination,Sensation,Tone, Cognition,Bed Mobility, Transfers,Gait,Activity Tolerance Progress Towards Goals Slow Progress due to Pain,Slow Progress due to Activity Tolerance Assessment Summary pt progressing slowly but continues to require mod to max A with mobility using FWW and requres max cues with all tasks. pt will require SNF rehab to improve strength and mobility. Goals Bed Mobility Goal Standby Assistance Transfer Goal Standby Assistance,Front Wheeled Walker Gait Goal Standby Assistance,Front Wheel Walker Gait Distance 100 Other Goals up/down 1 step using FWW SBA Days to Meet Goals 10 Frequency of Treatment Frequency Of Treatment Twice a Day Treatment Plan Physical Therapy Treatment Plan Bed Mobility Training,Transfer Training,Gait Training, Therapeutic Exercise,Balance Retraining,Post Op Education, Discharge Planning,Hot or Cold Pack,Neuromuscular Re-ed, Coordination Retraining,Manual Therapy Precautions Lumbar Precautions Log Roll,No Twisting,Limit Bending,Lifting Restriction of 10 lbs,Gait Belt above Incisional Area Recommendations To Nursing Amount of Assist Needed 1 Person Assist Discharge Recommendations PT Discharge Recommendations SNF Rehab Transportation Needs at Discharge Wheelchair/Cabulance
--- NOTE | 2021-09-04 09:54 | P.DS_ITS ---
History of Present Illness History of Present Illness Date Patient Seen: 09/04/21 Time Patient Seen: 09:54 Chief complaint: tlif w/ robot *OPB* 09/01 Narrative: Patient is complaining of moderate low back pain this morning. The medication change appears to be helpful. She denies any numbness or tingling down her legs. She notes she is not very active her baseline. She still has her catheter in. She was up and moving with occupational therapy and physical th [facility]. She has been up twice today. Our plan is to get her to SNF this afternoon. Discharge Providers Provider Date of admission: 09/01/21 11:06 Discharge Date: 09/04/21 Primary care physician: Андрей Cardenas MD Consults: 08/25/21 10:45 Consult to Engineering Design Manager Routine Comment: [place] 09/01/21 18:24 Consult to Occupational Therapy Evaluate & Treat Comment: Physician Instructions: Evaluate and treat Consult to Physical Therapy Evaluate & Treat Comment: Physician Instructions: Evaluate and Treat Discharge provider: Yahaira Gregory PA-C Summary Hospital Course Discharge Diagnosis: 1. L4-5 L5-S1 spondylolisthesis 2. L4-5, L5-S1 spinal stenosis with radiculopathy 3. diabetes Hospital Course: Operative Date/Time/Diagnoses Date of procedure: 09/01/21 Time of procedure: 12:45 Procedure & Clinicians Procedure: 1. L4-5, L5-S1 Postero-lateral and posterior interbody fusion 2. L4-5, L5-S1 interbody cage placement. 3. L4-5, L5-S1 decompressive laminectomy with bilateral facetecomies 4. L4-5, L5-S1 Posterior segmental instrumentation 5. [place] of bone marrow from iliac crest 6. Utilization of microsurgical technique and operating microscope 7. Utilization of robotic assisted navigation Same procedure as scheduled: Yes Indications: Patient has been having chronic back pain and worsening lumbar radiculopathy. Patient failed multiple conservative management with worsening pain weakness and numbness in her lower extremity.? Patient has been having difficulty performing activity of daily living.? After discussing risks benefits of treatment options, patient elected proceed with surgery. Surgeon: Nina Gauthier Nurses Supervisor: Sheila Colin Click Yes if Unassisted: No Anesthesia Type: General Operative Notes Closure Type: primary Specimen(s): none sent Prosthetic devices, grafts, tissues, transplants, or devices: Globus CREO MIS screws, Rise cages Applied: catheter Estimated Blood Loss (mL): 100 Blood products transfused: none Status at Discharge Cognitive/behavioral status at discharge: at baseline, oriented Functional status at discharge: uses cane/walker Overall status at discharge: patient is progressing back to baseline Exam Vital Signs (past 8 hours): - 09/04/21 04:35 09/04/21 07:27 09/04/21 09:12 Temperature 98.0 F Pulse Rate 89 Respiratory Rate 18 Blood Pressure 124/71 113/43 L Pulse Oximetry 95 95 Oxygen Delivery Method Room Air Oxygen Flow Rate 0 0 Oxygen Delivery Method Room Air Oxygen Flow Rate 0 Narrative Exam Narrative: Pleasant 85-year-old female, resting comfortably in her chair eating breakfast, no acute distress. Bilateral incisions are clean, dry, dressing is not intact though. It will need to be changed prior to discharge. Bilateral lower extremity: Motor functions are grossly intact, sensation is grossly intact to light touch, calves are soft and nontender to palpation. Objective Labs Result Diagrams: 09/02/21 05:52 [facility] Medical History BCC (basal cell carcinoma) Diabetes Fall from ground level (08/13/21) Hearing impaired HLD (hyperlipidemia) Spinal stenosis Surgical History History of 3 sections History of arthroplasty of right hip History of carpal tunnel surgery of left wrist History of carpal tunnel surgery of right wrist History of orthopedic surgery Hx of arthroscopy of right knee Hx of bilateral cataract extraction Hx of cholecystectomy Hx of toe surgery Social History household members: none lives independently: Yes Smoking Status: Never smoker alcohol intake: current Discharge Assessment & Plan Assessment and Plan Assessment: -stable status post TLIF -diabetes type 2 Plan of Treatment: -mobilize with PT/OT. Weightbearing as tolerated with front wheel walker. Limit bending, lifting, twisting x6 weeks -continue with multimodal pain management including Tylenol and oxycodone 5 mg. We will discontinue the diazepam and change to Vistaril as needed. -will need to be discharged on insulin sliding scale -removed Mann catheter this morning -COVID rapid test ordered for sniff placement -DC to SNF today once cleared by PT/OT Discharge Plan Discharge Plan Patient Disposition: SNF Discharge orders & Medications Prescriptions: New docusate sodium 100 mg Capsule 100 mg PO BID PRN (Reason: constipation) Qty: 30 0RF hydroxyzine pamoate 25 mg Capsule 25 mg PO Q6HR PRN (Reason: muscle spasms/pain/nausea) Qty: 30 0RF insulin lispro [Humalog U-100 Insulin] 100 unit/mL Solution See Rx Instructions .ROUTE .COMPLEX Qty: 10 0RF Rx Instructions: Per sliding scale protocol oxycodone 5 mg Tablet 5 mg PO Q3HR PRN (Reason: Pain, Moderate (4-6)) Qty: 42 0RF Continued Tresiba FlexTouch U-100 100 unit/mL (3 mL) Insulin Pen 25 - 30 unit SUBCUT BEDTIME metformin 500 mg tablet 1,000 mg PO BID losartan 25 mg tablet 25 mg PO DAILY Label Comments: Takes at bedtime insulin aspart U-100 100 unit/mL insulin pen 5 - 8 units subcut TID Rx Instructions: TID BEFORE MEALS PLUS SLIDING SCALE rosuvastatin 20 mg tablet 20 mg PO DAILY aspirin 81 mg Tablet,Delayed Release (Dr/Ec) 81 mg PO DAILY acetaminophen [Tylenol Extra Strength] 500 mg Tablet 500 mg PO Q6H PRN (Reason: pain) Glucagon Emergency Kit (human) 1 mg Recon Soln 1 dose IM PRN PRN (Reason: Hypoglycemia) cinnamon bark [Cinnamon] 500 mg Capsule 1,000 mg PO BID lutein 20 mg Capsule 20 mg PO DAILY cholecalciferol (vitamin D3) [Vitamin D3] 2,000 unit Tablet 2,000 unit PO DAILY Rx Instructions: possible placebo, on study Cranberry Fruit 300 mg capsule 300 mg PO DAILY Follow up/Referrals: Андрей Cardenas MD [Primary Care Provider] - Nina Gauthier MD [Physician] - As previously scheduled (Follow up w/ JASON Cano, on 09/16/2021 @ 1:00 pm at [facility] office in [place].) Diet/Activity/Treatments Diet: Carb-consistent/Diabetic Other treatments: Dressing/Wound care: -Keep dressing in place until postoperative follow-up office visit. -Okay to shower. Keep wound out of direct water stream. Can use PressNSeal plastic wrap to protect from shower stream. No soaking or submerging until all the scabs fall off (approximately 6 weeks). -Please call the office if dressing becomes wet, soiled, or saturated. Activities: -Limit bending, lifting, twisting x6 weeks. No deep bending (more than 90 degrees) or twisting at the waist. No lifting > 20 pounds. -Walk frequently. -Weight-bearing as tolerated. Use front wheeled walker, and progress to cane when safe. -Continue with home exercises as directed by your physical therapist. -Ice your incision as needed for pain/inflammation/swelling. Protect your skin with a folded pillowcase. -Incentive Spirometer (breathing device from hospital): 5-10xs every hour while awake for the first 1-2 weeks. Follow-up: -Follow-up with your surgeon or PA in the office in 10-14 days after surgery. -Follow-up with your surgeon 6 weeks postoperatively. Call the office if you have chest pain, shortness of breath, significant swelling that will not resolve with elevating, fever over 101?, significantly worsening pain, or are concerned you might need to go to the Emergency Room. [facility]: [phone] Skin/Wound/Dressing Care Report to your healthcare provider any signs of infection, such as:: chills, fever, night sweats, unusual drainage and unusual redness [facility] Reason for rehabilitation: Post-operative therapy Rehab type: Physical therapy and Occupational therapy Visit Report/Discharge Packet Instructions: DI for Prescription Opioid Use, DI for Transforaminal Lumbar Interbody Fusion Stand Alone Forms: Surgery Discharge Discharge Data Primary Care Provider: Андрей Cardenas VTE Deep Vein Thrombosis/Pulmonary Embolism Present on Admission: No
[2021-09-04 11:49] LABS: COVID19 -Nasal RAPID Negative (Negative)
--- NOTE | 2021-09-04 12:43 | PC.NURSE ---
Mann removed, IV removed, Dressing to back changed per order. Called report to Dorita at [facility] and all questions answered. Pt out via w/c with [facility] personnel, daughter and all belongings.
--- NOTE | 2021-09-04 13:51 | CM.DPNOTE ---
DCP Note: Patient discharged this afternoon to [facility] who was here for pickup. Nubia Rocha RN/DCP
== END 2021-09-04 13:15 | DRG 455 ==
LOC: OR 11:06 → AC 09-02 08:45
PROVIDERS: Physician Assistant; Admitting Provider Orthopaedic Surgery Orthopaedic Surgery of the Spine; PCP Internal Medicine; Referring Provider Orthopaedic Surgery Orthopaedic Surgery of the Spine; Visit Provider Orthopaedic Surgery Orthopaedic Surgery of the Spine
PROC: 0SG00AJ Fusion of Lumbar Vertebral Joint with Interbody Fusion Device, Posterior Approach, Anterior Column, Open Approach (ICD-10-PCS; principal; 2021-09-01 12:45)
DX: M43.16 Spondylolisthesis, lumbar region (principal); M48.07 Spinal stenosis, lumbosacral region; M47.9 Spondylosis, unspecified; M48.061 Spinal stenosis, lumbar region without neurogenic claudication; M43.17 Spondylolisthesis, lumbosacral region; M54.16 Radiculopathy, lumbar region; M54.17 Radiculopathy, lumbosacral region; E78.5 Hyperlipidemia, unspecified; E11.9 Type 2 diabetes mellitus without complications; Z20.822 Contact with and (suspected) exposure to COVID-19; Z79.4 Long term (current) use of insulin; Z79.84 Long term (current) use of oral hypoglycemic drugs
CPT/HCPCS: 36415; 72100; 76000; 82962; 85014; 85018; 87635; 94760; 97162; 97165; 97530; 97535; C9803; U0003; U0005; C1713; C9290; J0131; J0171; J0690; J1100; J1815; J2060; J2270; J2274; J2405; J2704; J3010

== ENCOUNTER → 2022-04-28 11:16 | Outpatient (CLI) | payer MEDICARE, OTHER, SELFPAY ==
[2022-04-22 15:03] VITALS: BMI 26.6
--- NOTE | 2022-04-28 11:31 | DI.CT.S_ITS ---
PROCEDURE: CT LUMBAR SPINE WO CON INDICATIONS: Spinal stenosis, lumbar region TECHNIQUE: Noncontrast 3 mm thick sections acquired from the T12 level to the sacrum. Sagittal and coronal reformats were constructed. For radiation dose reduction, the following was used: automated exposure control. COMPARISON: Located [facility], MR, MR LUMBAR SPINE WO CON, 06/21/2021, 10:07. Located Within [facility], CT, CT LUMBAR SPINE WO CON, 08/22/2021, 10:20. FINDINGS: Image quality: Excellent. Bones: There is normal bony alignment. Interval posterior lateral rosana and pedicle screw fixation at L4 through S1, with right pedicle screws in L4, L5, and S1, and left pedicle screws in L4 and S1. Interval right hemilaminectomy and facetectomy at L4-L5 and L5-S1. Interval disc prosthesis placement at L4-L5 and L5-S1. Expected appearance of surgical hardware. No evidence of hardware failure or loosening. Improved alignment at L5-S1 and L4-L5. Significant interval improvement in the right L4-L5 and L5-S1 foramina. Soft tissues: No retroperitoneal masses or hematomas. Visualized aorta is normal in caliber. IMPRESSION: Expected appearance of surgical hardware status post right facetectomy and hemilaminotomy at L4-L5 and L5-S1 with posterior lateral fusion and discal fusion. Significant improvement in right foraminal narrowing at these 2 levels. Dictated by: Iam Knight M.D. on 04/28/2022 at 14:50 Approved by: Iam Knight M.D. on 04/28/2022 at 14:57
== END ==
PROVIDERS: PCP Internal Medicine; Referring Provider Orthopaedic Surgery Orthopaedic Surgery of the Spine; Visit Provider Orthopaedic Surgery Orthopaedic Surgery of the Spine
DX: M48.062 Spinal stenosis, lumbar region with neurogenic claudication (principal); Z98.1 Arthrodesis status
CPT/HCPCS: 72131

== ENCOUNTER → 2022-06-23 12:39 | Outpatient (CLI) | payer MEDICARE, OTHER, SELFPAY ==
[2022-04-22 15:03] VITALS: BMI 26.6
--- NOTE | 2022-06-23 | DI.MRI.S_ITS ---
PROCEDURE: MR KNEE RT WO CON INDICATIONS: Unspecified internal derangement of right knee TECHNIQUE: Noncontrast sagittal PD fast spin echo and T2 fast spin echo with fat saturation, sagittal 3-D FLASH with fat saturation; coronal T1 spin echo and PD fast spin echo with fat saturation, and axial PD fast spin echo with fat saturation through the knee. COMPARISON: [facility], , KNEE WITHOUT CONTRAST, 12/11/2016, 14:12. [facility], [place], BONE SCAN THREE PHASE, 07/11/2008, 9:07. [facility], CR, XR KNEE 3 VIEWS RIGHT, 06/10/2022, 12:02. FINDINGS: Image quality: Excellent. Menisci: Medial meniscal extrusion. Large complex tear involving the body, as well as the anterior and posterior horns of the medial meniscus. Lateral meniscal extrusion. There is complex tear involving the anterior horn, body and posterior horn of the lateral meniscus. Cruciate ligaments: The anterior and posterior cruciate ligaments appear intact. Medial structures: There is mild sprain of the past medial collateral ligament. The, semimembranosus tendon insertions and meniscocapsular junction appear intact. Visualized portions of the pes anserinus tendons appear normal. No abnormal bursal fluid. Lateral structures: Low-grade sprain of the lateral collateral ligament. The the biceps femoris tendon is intact. The popliteus tendon appears normal. Iliotibial band appears normal. Anterior structures: The quadriceps and patellar tendons appear intact. There is mild quadriceps tendinitis. Patellar alignment is normal. No femoral trochlear dysplasia or ventral trochlear prominence. No edema in the infrapatellar fat pad. Bones and cartilage: No bone marrow contusions or fractures. Severe tricompartmental cartilage thinning and fibrillation, more pronounced in the lateral femorotibial compartment and patellofemoral compartment. Subchondral edema in the lateral tibial plateau, as well as superior aspect of patella. Joint space: There is small knee joint fluid. There is a moderate-sized Best's cyst. Normal appearing synovial plicae are incidentally noted. IMPRESSION: 1. Medial meniscal tear. 2. Lateral meniscal tear. 3. 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 4. Mild quadriceps tendinitis. 5. Small knee joint effusion. 6. A moderate-sized Best's cyst. Dictated by: Mariluz Stock M.D. on 06/23/2022 at 14:00 Approved by: Mariluz Stock M.D. on 06/23/2022 at 14:09
== END ==
PROVIDERS: PCP Internal Medicine; Referring Provider Physician Assistant; Visit Provider Physician Assistant
DX: S83.241A Other tear of medial meniscus, current injury, right knee, initial encounter (principal); S83.281A Other tear of lateral meniscus, current injury, right knee, initial encounter; M17.11 Unilateral primary osteoarthritis, right knee; M25.461 Effusion, right knee; M76.51 Patellar tendinitis, right knee; M71.21 Synovial cyst of popliteal space [Baker], right knee; M23.91 Unspecified internal derangement of right knee
CPT/HCPCS: 73721

== ENCOUNTER → 2022-09-03 10:55 | Outpatient (CLI) | payer MEDICARE, OTHER, SELFPAY ==
[2022-04-22 15:03] VITALS: BMI 26.6
== END ==
PROVIDERS: PCP Internal Medicine; Referring Provider Orthopaedic Surgery; Visit Provider Orthopaedic Surgery
DX: Z01.818 Encounter for other preprocedural examination (principal)
CPT/HCPCS: 93005; 93010

== ENCOUNTER → 2023-01-12 15:36 | Outpatient (CLI) | payer MEDICARE, OTHER, SELFPAY ==
[2022-04-22 15:03] VITALS: BMI 26.6
--- NOTE | 2023-01-12 | DI.US.S_ITS ---
PROCEDURE: US PERIPH VENOUS LOW EXTREM LT INDICATIONS: CALF PAIN TECHNIQUE: Real-time imaging, as well as color and pulse Doppler interrogation, were performed of the lower extremity deep veins from the inguinal ligament to the popliteal fossa, with documentation of the visualized calf veins. COMPARISON: None. FINDINGS: The common femoral, femoral, popliteal, and the visualized calf veins are normally compressible, and free of intraluminal thrombus. Color and pulse Doppler demonstrate normal phasic intraluminal flow. There is normal augmentation response to distal compression maneuver. IMPRESSION: No findings of lower extremity deep venous thrombosis. Dictated by: Fahad Bergman M.D. on 01/12/2023 at 21:18 Approved by: Fahad Bergman M.D. on 01/12/2023 at 21:18
--- NOTE | 2023-01-12 | DI.US.S_ITS ---
PROCEDURE: US ABDOMEN LIMITED INDICATIONS: RIGHT UPPER QUADRANT PAIN TECHNIQUE: Real-time scanning was performed of the abdominal and retroperitoneal organs, with image documentation. COMPARISON: None. FINDINGS: Liver: Liver is normal in size and homogeneous in echotexture. Gallbladder: Surgically absent Biliary ducts: Intrahepatic bile ducts are non-dilated. Extrahepatic bile duct caliber measures 5.0 mm. Normal is 6-7 mm or less in diameter, or 10 mm or less post-cholecystectomy. Pancreas: Visualized portions of the pancreas are sonographically normal. The tail the pancreas is not well visualized. IMPRESSION: 1. Unremarkable right upper quadrant ultrasound. Dictated by: Jocy Coello M.D. on 01/13/2023 at 10:11 Approved by: Jocy Coello M.D. on 01/13/2023 at 10:16
--- NOTE | 2023-01-12 | DI.CT.S_ITS ---
PROCEDURE: CT CHEST WO CON INDICATIONS: CHEST PAIN / RUQ PAIN TECHNIQUE: Noncontrast 5 mm thick sections acquired from the pulmonary apices to the posterior costophrenic angles. 1 mm lung window, 5 mm thick coronal and sagittal and 7 mm axial MIP reformats were then acquired. For radiation dose reduction, the following was used: automated exposure control, adjustment of mA and/or kV according to patient size. COMPARISON: [facility], , ABDOMEN LIMITED, 01/12/2023, 16:55. FINDINGS: Image quality: Excellent. Lungs and pleura: Left lobe solid pulmonary nodule measuring 6 x 5 mm (3/41). A few scattered subcentimeter calcified granulomas. Right medial lower lobe osteophyte related compressive atelectasis. No acute air space opacities. No pleural effusions or pneumothorax. Central and peripheral airways are patent and normal in caliber. Mediastinum: Heart size is normal. No pericardial effusion. No mediastinal adenopathy by size criteria. Thoracic aorta and central pulmonary arteries are normal in size. No coronary vessel calcifications. Minimal calcification of the thoracic aorta. Esophagus is normal in caliber. No hiatal hernia. Bones and chest wall: No suspicious bony lesions. No vertebral body compression fractures. Moderate multilevel degenerative changes of the spine. No axillary or supraclavicular adenopathy by size criteria. Thyroid gland unremarkable . Abdomen: Visualized upper abdominal solid organs and bowel loops appear normal in the absence of contrast. IMPRESSION: 1. No acute pathology in the chest or upper abdomen. 2. Left lower lobe solid pulmonary nodule measuring 6 x 5 mm. -Fleischner guidelines: Recommend repeat CT in 6-12 months. Dictated by: Roman Pizano M.D. on 01/12/2023 at 19:09 Approved by: Roman Pizano M.D. on 01/12/2023 at 19:26
== END ==
PROVIDERS: PCP Physician Assistant Medical; Referring Provider Internal Medicine; Visit Provider Internal Medicine
DX: R07.1 Chest pain on breathing (principal); R91.1 Solitary pulmonary nodule; R10.11 Right upper quadrant pain; M79.662 Pain in left lower leg; Z90.49 Acquired absence of other specified parts of digestive tract
CPT/HCPCS: 71250; 76705; 93971

== ENCOUNTER → 2023-08-09 08:44 | Outpatient (CLI) | payer MEDICARE, OTHER, SELFPAY ==
[2022-04-22 15:03] VITALS: BMI 26.6
--- NOTE | 2023-08-09 08:46 | DI.MG.S_ITS ---
BILATERAL DIGITAL DIAGNOSTIC MAMMOGRAM 3D/2D: 08/09/2023 CLINICAL: Palpable right breast lump. Comparison is made to exams dated: 01/05/2020 mammogram - [facility], 09/23/2018 mammogram, and 08/17/2017 mammogram - [facility]. There are scattered areas of fibroglandular density in both breasts (category b / 25%-50% glandular tissue). There is a new 2.5 cm irregular high density focal asymmetry with an indistinct margin and grouped pleomorphic calcifications in the right breast at 11 o'clock middle depth. This is seen in additional views. No other significant masses, calcifications, or other findings are seen in either breast. Mammograms are otherwise stable. IMPRESSION: INCOMPLETE: NEEDS ADDITIONAL IMAGING EVALUATION The new 2.5 cm irregular high density focal asymmetry in the right breast corresponds to the palpable abnormality, is suspicious but remains indeterminate. An ultrasound is recommended. This was performed immediately following this exam. Bilateral mammograms are otherwise stable. This exam was interpreted at Station ID: [id number]. NOTE: For mammograms, a report in lay terms will be sent to the patient. Approximately 15% of breast malignancies will not be visualized mammographically. In the management of a palpable breast mass, a negative mammogram must not discourage biopsy of a clinically suspicious lesion. Electronically Signed By: Rina alegria/:08/09/2023 09:35:57 ACR BI-RADS Category 0: Incomplete [id number]
--- NOTE | 2023-08-09 08:47 | DI.US.S_ITS ---
LIMITED ULTRASOUND OF RIGHT BREAST AND AXILLA: 08/09/2023 CLINICAL: Palpable right breast lump. Comparison is made to exams dated: 08/09/2023 mammogram, 01/05/2020 mammogram - [facility], 09/23/2018 mammogram, 08/17/2017 mammogram, and 08/14/2016 mammogram - [facility]. Color flow ultrasound of the right breast 10 o'clock, and axilla regions was performed. Gutierrez scale images of the real-time examination were reviewed. There is a 2.5 cm x 1.9 cm x 2 cm irregular mass with a microlobulated and angular margin in the right breast at 10 o'clock middle depth 7 cm from the nipple. This irregular mass is hypoechoic. This correlates as palpated and with mammography findings. Color flow imaging demonstrates that there is increased vascularity. No significant abnormalities were seen sonographically in the right axilla. IMPRESSION: HIGHLY SUGGESTIVE OF MALIGNANCY The 2.5 cm x 1.9 cm x 2 cm irregular mass in the right breast corresponds to the mammogram finding, and is highly suggestive of malignancy. An ultrasound guided biopsy is recommended. Findings and recommendations were discussed with the patient in person by Dr. Messi Barcenas at time of exam. This exam was interpreted at Station ID: [id number]. Electronically Signed By: Rina alegria/:08/09/2023 10:04:04 letter sent: Biopsy Required Ultrasound BI-RADS: 5 Highly suggestive of malignancy
== END ==
LOC: MAMMO 08:46
PROVIDERS: PCP Internal Medicine; Referring Provider Internal Medicine; Visit Provider Internal Medicine
DX: R92.8 Other abnormal and inconclusive findings on diagnostic imaging of breast (principal); N63.11 Unspecified lump in the right breast, upper outer quadrant; R92.323 Mammographic fibroglandular density, bilateral breasts
CPT/HCPCS: 76642; 77066; G0279

== ENCOUNTER → 2023-08-20 12:38 | Outpatient (CLI) | payer MEDICARE, OTHER, SELFPAY ==
[2022-04-22 15:03] VITALS: BMI 26.6
--- NOTE | 2023-08-20 | DI.MG.S_ITS ---
UNILATERAL RIGHT DIGITAL DIAGNOSTIC MAMMOGRAM 3D/2D POST-PROCEDURE IMAGING FOR MARKER PLACEMENT: 08/20/2023 CLINICAL: Post right breast ultrasound biopsy, clip placement imaging. Comparison is made to exams dated: 08/09/2023 mammogram, 01/05/2020 mammogram - [facility], 09/23/2018 mammogram, and 08/17/2017 mammogram - [facility]. There are scattered areas of fibroglandular density in the right breast (category b / 25%-50% glandular tissue). There is a marker clip in the appropriate position in the right breast at 11 o'clock middle depth. This marker clip placement is at the biopsy site. IMPRESSION: POST PROCEDURE MAMMOGRAM FOR MARKER PLACEMENT There was a successful marker clip placement in the right breast middle depth. This exam was interpreted at Station ID: [id number]. NOTE: For mammograms, a report in lay terms will be sent to the patient. Approximately 15% of breast malignancies will not be visualized mammographically. In the management of a palpable breast mass, a negative mammogram must not discourage biopsy of a clinically suspicious lesion. Electronically Signed By: Saran Russ M.D. crm/:08/20/2023 16:28:07 ACR BI-RADS Category Post-procedure mammogram for marker placement
--- NOTE | 2023-08-20 | PATH_ITS ---
[facility] Accession Number: [id number] No. of containers..01 Tissue . 01 Material submitted: . breast - RIGHT BREAST 10:00 7 CMFN MASS . 01 Diagnosis: RIGHT BREAST, 10 O'CLOCK, 7 CM FROM NIPPLE, MASS, NEEDLE CORE BIOPSIES: Poorly differentiated malignant neoplasm, favor breast primary with squamous differentiation; see case summary and comment. . . CASE SUMMARY - INVASIVE CARCINOMA OF THE BREAST Specimen Procedure: Needle biopsy. Specimen laterality: Right. Tumor Tumor site: 10 o'clock. Distance from nipple: 7 cm. Histologic type: Invasive carcinoma, type cannot be determined (poorly differentiated carcinoma with squamous differentiation). Histologic grade Glandular/tubular differentiation: Score 3. Nuclear pleomorphism: Score 3. Mitotic rate: Score 2. Overall grade: Grade 3 Largest invasive focus in this limited biopsy sample: 7 mm. Ductal carcinoma in situ: Not identified. Lymphovascular invasion: Not identified. Microcalcifications: Present in nonneoplastic tissue. Special studies: Predictive marker immunohistochemical studies are performed on block A1 with the invasive carcinoma showing the following results: . Estrogen receptor (SP1): Negative (average intensity not applicable). Progesterone receptor (1E2): Negative (average intensity of staining not applicable). Her2 (4B5) by immunohistochemistry: Equivocal (2+). Her2 (B45) by in situ hybridization: Pending; results will be issued in an addendum. . Internal controls for ER and TN are negative; false negative results cannot be excluded. Cold ischemic time is <5 minutes. The scoring criteria for breast biomarkers by immunohistochemistry is based on the ASCO/CAP guidelines (Gifty AC et al, J Clin Oncol: 2018 Sep 14;36(20):3816-1240 and Nicolette ME et al, Arch Pathol Lab Med: 2009;134(6):907-22). Deparaffinized sections of formalin fixed tissue (along with appropriate positive controls) are incubated with the above antibody(s). Using the automated Oppelo stainer, tissue is incubated with the designated antibody which is then localized by a non-biotin, dual polymer detection system. The external controls are reviewed for appropriate reactivity and found to be adequate. Results on the target cell population are indicated above. These tests have not been validated on decalcified tissue. MRV 08/27/2023 1330 Local . 01 Comment: The biopsy consists of a poorly differentiated malignant neoplasm with variable GATA3, cytokeratin 5/6 and p40 immunoreactivity, favor breast primary with squamous differentiation. Definitive classification is deferred to an excision specimen. The differential diagnosis includes metaplastic carcinoma with squamous differentiation or a primary squamous cell carcinoma of the breast, amongst other possibilities. . Given the equivocal HER2 by immunohistochemistry, FISH for HER2 will be performed, and results will be issued in an addendum. . As part of routine quality management coordinator, Dr. Hull has reviewed this case, and agrees with the diagnosis of poorly differentiated malignancy with squamous differentiation. . The preliminary findings of malignancy were discussed between Dr. Salguero and Dr. Shine on 08/24/2023 at 3:40 p.m. . 01 Electronically signed: . Brandon Shine MD, PhD, Pathologist NPI- [id number] . 01 Gross description: . Received is one formalin-filled container labeled with the patient's name and designated right breast 10 o'clock 7 cm FN mass. The sample is received with plastic filter in container and sample loose in container, and consists of four fragments of yellow-alexandre to alexandre-bailey soft tissue which range in size from 0.6 x 0.2 x 0.2 cm to 1.6 x 0.2 x 0.2 cm. All fragments are totally submitted in cassette A1. . Possible collection date and time per requisition 08/20/2023 at 1335 hours. Total fixation time approximately 42 hours. ([id number]) / 08/21/2023 1841 Local . 01 Microscopic: . Sections are of breast parenchyma infiltrated by an epithelioid neoplasm with a nested and trabecular growth pattern. Marked nuclear atypia and prominent nucleoli are seen. Mitotic figures are readily identified. To further evaluate the malignant cells, a panel of immunohistochemical stains is performed (each with an appropriately positive control). The malignant cells are variably positive for GATA3 immunoreactivity, consistent with mammary carcinoma. The malignant cells are variably positive for cytokeratin 5/6 and p40 immunoreactivity, consistent with squamous differentiation. The malignant cells are negative for mammoglobin and GCDFP immunoreactivity, providing no additional support for a breast primary. The malignant cells are negative for chromogranin and synaptophysin immunoreactivity, essentially excluding a neuroendocrine malignancy. The malignant cells are negative for smooth muscle actin immunoreactivity, excluding a leiomyosarcomatous component. The malignant cells are negative for estrogen receptor and progesterone receptor immunoreactivity, and are equivocal (2+) for HER2 overexpression. . * This test was developed and its performance characteristics determined by [facility]. It has not been cleared or approved by the U.S. Food and Drug Administration. The FDA has determined that such clearance or approval is not necessary. This test is used for clinical purposes. It should not be regarded as investigational or for research. . 01 Pathologist provided ICD-10: C50.411 . 01 CPT . 658110, C21295, V73063, [id number] Specimen Comment: A courtesy copy of this report has been sent to [facility], Specimen Comment: [phone] Performed at: [address] [address], [place], [place] [id number] MD Kennedy Oliveira MD Phone: [phone]
--- NOTE | 2023-08-20 12:40 | DI.US.S_ITS ---
ULTRASOUND GUIDED BIOPSY RIGHT BREAST USING VACUUM DEVICE WITH MARKING DEVICE INSERTED: 08/20/2023 CLINICAL: Right breast mass. PATIENT CONSENT: Risks (minor bleeding, infection, vasovagal reaction and repeat procedure), benefits and alternatives were explained to the patient and written informed consent was obtained. Correlation is made to exams dated: 08/20/2023 mammogram, 08/09/2023 ultrasound, 08/09/2023 mammogram, 01/05/2020 mammogram - [facility], and 09/23/2018 mammogram - [facility]. An ultrasound guided biopsy using real-time ultrasound was performed for the 2.5 cm x 1.9 cm x 2 cm mass located in the right breast at 10 o'clock middle depth 7 cm from the nipple. The skin was prepped in the usual manner. A biopsy needle was placed adjacent to the abnormality under ultrasound guidance. Once the needle was documented to be in the correct location, a specimen was obtained using the Mammotome biopsy system. A clip was inserted into the biopsy cavity. The specimen was sent to the laboratory for pathological analysis. IMPRESSION: ULTRASOUND GUIDED BIOPSY MALIGNANT Ultrasound guided biopsy of the 2.5 cm x 1.9 cm x 2 cm mass in the right breast at 10 o'clock middle depth 7 cm from the nipple was successful. Pathology indicates malignant poorly differentiated malignant neoplasm, favor breast primary with squamous differentiation. Please see the pathology report for additional discussion. Pathology results are concordant with imaging findings. A surgical/oncologic consultation is recommended. This exam was interpreted at Station ID: [id number]. Saran gonzalez,ar/:08/27/2023 15:42:54
== END ==
LOC: US 12:39
PROVIDERS: PCP Internal Medicine; Referring Provider Internal Medicine; Visit Provider Internal Medicine
DX: C50.411 Malignant neoplasm of upper-outer quadrant of right female breast; R92.321 Mammographic fibroglandular density, right breast; Z17.1 Estrogen receptor negative status [ER-]
CPT/HCPCS: 19083; 77065

== ENCOUNTER → 2024-05-10 09:42 | Outpatient (CLI) | payer MEDICARE, OTHER, SELFPAY ==
[2022-04-22 15:03] VITALS: BMI 26.6
--- NOTE | 2024-05-10 09:43 | DI.RAD.S_ITS ---
PROCEDURE: XR DEXA AXIAL SKELETON INDICATIONS: SCREENING FOR OSTEOPOROSIS COMPARISON: None. FINDINGS: Lumbar Spine: L2-L3. Bone mineral density 1.158 g/cm2, T score 0.9. L4, L5, S1 pedicle screw fixation. Left Femoral Neck: Bone mineral density 0.747 g/cm2, T score -0.9. Left Hip: Bone mineral density 0.815 g/cm2, T score -1.0. Fracture Risk Calculation (when applicable): 10-year fracture risk of a major osteoporotic fracture 11 percent and of a hip fracture 2.5 percent. (T score greater or equal to -1.0 to: NORMAL) (T score from -1.1 to -2.4: OSTEOPENIA) (T score less than or equal to -2.5: OSTEOPOROSIS) IMPRESSION: Bone mineral density is within normal limits. Follow-up guidelines as follows: Osteoporosis: Consider a repeat DEXA and Vertebral Fracture Assessment (VFA) exam in 2 years or sooner if medically necessary, to reassess this patient's status. Osteopenia: Consider a repeat DEXA in 2-3 years to reassess this patient's status, or if there is a new clinical indication. Normal: Consider a repeat DEXA in 5 years or sooner, or if there is a new clinical indication. All treatment decisions require clinical judgment and consideration of individual patient factors, including patient preferences, comorbidities, previous drug use, risk factors not captured in the FRAX model (e.g., frailty, falls, vitamin D deficiency, increased bone turnover, interval significant decline in bone density ) and possible under- or over-estimation of fracture risk by FRAX. In addition, the NOF Guide recommends that FDA-approved medical therapies be considered in postmenopausal women and men age >= 50 years with a: * Hip or vertebral (clinical or morphometric) fracture * T-score of <=-2.5 at the spine or hip * Ten-year fracture probability by FRAX of >= 3% for hip fracture or >=20% for major osteoporotic fracture. Dictated by: Suhail Jeff M.D. on 05/11/2024 at 8:10 Approved by: Suhail Jeff M.D. on 05/11/2024 at 8:13
== END ==
PROVIDERS: PCP Internal Medicine; Referring Provider Internal Medicine; Visit Provider Internal Medicine
DX: Z13.820 Encounter for screening for osteoporosis (principal); Z78.0 Asymptomatic menopausal state
CPT/HCPCS: 77080

== ENCOUNTER → 2025-01-27 11:08 | Outpatient (CLI) | payer MEDICARE, OTHER, SELFPAY ==
[2022-04-22 15:03] VITALS: BMI 26.6
--- NOTE | 2025-01-27 11:10 | DI.MRI.S_ITS ---
PROCEDURE: MR HEAD/BRAIN WO CON INDICATIONS: Breast Cancer Stage IV TECHNIQUE: Non-contrast axial T1 spin echo, axial T2 fast spin echo, sagittal and axial FLAIR, coronal T2 fast spin echo, axial gradient echo, axial diffusion and ADC through the brain. COMPARISON: None. FINDINGS: Image quality: Excellent. CSF spaces: Ventricles appear symmetric in size and shape. Basal cisterns are patent. No extra-axial fluid collections. Brain: No intracranial bleeds or mass effects. There is cerebral volume loss for age. There are periventricular and deep white matter chronic small vessel ischemic changes. Brainstem appears normal. Diffusion-weighted images show no acute infarct. No chronic ischemic insults. Normal intravascular flow voids are present. Skull and face: Calvarial bone marrow is normal in signal. Bilateral lens replacements. Otherwise, the orbits are unremarkable. Sinuses: Sinuses and mastoids are clear. IMPRESSION: Limit evaluation without the use of intravenous contrast. No findings concerning for large metastatic lesions. However, small or early metastatic disease cannot be excluded. No acute intracranial abnormalities. Age-related global volume loss and chronic microvascular ischemic changes. Dictated by: Saran Russ M.D. on 01/29/2025 at 13:03 Approved by: Saran Russ M.D. on 01/29/2025 at 13:06
== END ==
LOC: MRI 11:09
PROVIDERS: PCP Internal Medicine; Referring Provider Internal Medicine Hematology & Oncology; Visit Provider Internal Medicine Hematology & Oncology
DX: C50.411 Malignant neoplasm of upper-outer quadrant of right female breast (principal); D50.9 Iron deficiency anemia, unspecified; R55 Syncope and collapse; Z17.1 Estrogen receptor negative status [ER-]
CPT/HCPCS: 70551